=== PATIENT | male | born 1985 | race Caucasian/White ===

== ENCOUNTER 2016-03-20 11:55 | Emergency (ER) | payer MEDICARE, MEDICAID ==
[~2016-03-20 11:55] MED LIST: CIPR500T89 PO; PERC7.5T12 PO; XANA1TAB2 PO
--- NOTE | 2016-03-20 13:14 | EDDOCDS ---
Nurse's Notes [facility] Name: Yoan Briceño Age: 30 yrs Sex: Male : 1985 Arrival Date: 03/20/2016 Time: 11:55 Bed TR8 Private MD: NO PRIMARY PHYSICIAN, . Diagnosis: Acute upper respiratory infection, unspecified Presentation: 03/20 11:58 Presenting complaint: Patient states: woke up today with hoarse voice hurts to take bcj breath - hurts to swallow. coughing up yellow mucus. denies drooling. Adult Sepsis Screening: The patient does not have new or worsening altered mentation. Patient's respiratory rate is less than 22. Systolic blood pressure is greater than 100. Patient has a qSOFA score of 0- Negative Sepsis Screen. Suicide/Homicide risk assessment- the patient denies having any suicidal and/or homicidal ideations and does not present with any other emotional, behavioral or mental health complaints. Status: Transition of care: patient was not received from another setting of care. 11:58 Acuity: HORACIO Level 4 [facility] 11:58 Method Of Arrival: Walkin/Carried/Asstd bcj Triage Assessment: 12:00 General: Appears in no apparent distress, comfortable, Behavior is cooperative. Pain: bcj Location: neck Pain currently is 8 out of 10 on a pain scale. HIV screening NA for this visit Offered previously. Respiratory: Onset: The symptoms/episode began/occurred today. Historical: - Allergies: PENICILLINS; - Home Meds: 1. aspirin 81 mg Oral tab 1 tab once daily patient took 2 at 0800 2. magnesium oxide 500 mg Oral tab daily 3. Xanax 0.5 mg Oral tab 1 tab as needed for Anxiety - PMHx: Anxiety; Atrial Fib; PTSD; - PSHx: none; - Social history: Smoking status: Chewing Tobacco No barriers to communication noted, The patient speaks fluent Kazakh, Speaks appropriately for age. - Family history: Not pertinent. - : The pt / caregiver states he / she is not on anticoagulants. Home medication list is obtained from the patient. - Exposure Risk Screening:: None identified. Screenin:11 Screening information is obtained from the patient. Fall risk: No risks identified. ms18 Assistance ADL's: requires no assistance with activities of daily living. Abuse/DV Screen: The patient / caregiver reports he/she is: not in a situation that causes fear, pain or injury. Nutritional screening: No deficits noted. Advance Directives: There is no living will. home support is adequate. Assessment: 13:11 General: Appears in no apparent distress, comfortable, obese, Behavior is appropriate ms18 for age, cooperative, quiet. Pain: Denies pain. Neurological: Level of Consciousness is awake, alert, obeys commands, Oriented to person, place, time. Cardiovascular: Capillary refill < 3 seconds Chest pain is denied. Respiratory: Airway is patent Respiratory effort is even, unlabored, Breath sounds are clear bilaterally. Derm: Skin is pink, warm & dry. Vital Signs: 11:56 BP 134 / 87; Pulse 98; Resp 18 S; Temp 97.8(O); Pulse Ox 98% on R/A; Weight 125.19 kg dd6 (R); Height 6 ft. 0 in. (182.88 cm) (R); 11:56 Body Mass Index 37.43 (125.19 kg, 182.88 cm) dd6 Vitals: 11:56 Log In Time: March 20, 2016 at 11:54. dd6 ED Course: 11:56 Patient visited by Elias Sampson PCA. dd6 11:56 NO PRIMARY PHYSICIAN, . is Private Physician. dd6 11:56 Patient moved to Waiting dd6 11:57 Patient moved to Pre RCE dd6 11:59 Triage Initiated bc 12:01 Patient visited by Vish Sprague RN. [facility] 12:18 Patient moved to Triage 3 rs6 12:40 [facility] jo4 12:40 Mindy Barrera MD is Attending Physician. jo4 13:10 Patient moved to TR8 md18 13:11 The patient / caregiver is instructed regarding the plan of care and ED course. Patient ms18 has correct armband on for positive identification. Property sent home with patient. :Personal belongings accompany Pt. 13:11 No IV's were initiated during this patient's visit. No procedures done that require ms18 assistance. 13:12 [facility] [place] Agreement was scanned into [employer] and attached to record. jp5 13:13 Patient visited by Krystal Murdock RN. ms18 Order Results: There are currently no results for this order. Outcome: 13:03 Discharge ordered by Provider. jo4 13:11 Discharge Assessment: Patient awake, alert and oriented x 3. No cognitive and/or ms18 functional deficits noted. Patient verbalized understanding of disposition instructions. patient administered narcotics - no. The following High Risk Discharge criteria are identified: None. Discharged to home ambulatory. Condition: good Condition: stable. Discharge instructions given to patient, Instructed on discharge instructions, follow up and referral plans. Demonstrated understanding of instructions, Pt was receptive of discharge instructions/ teaching. No special radiology studies were completed. 13:13 Patient left the ED. ms18 Signatures: Vish Sprague, RN RN Elias Ma, PROPOSAL SPECIALIST PROPOSAL SPECIALIST dd6 Krystal Murdock RN RN ms18 Gia Berrios, PROPOSAL SPECIALIST PROPOSAL SPECIALIST rs6 Lana Galvan Jane, DO DO jo4 DAVID
--- NOTE | 2016-03-20 13:14 | EDDOCDS ---
Physician Documentation [facility] Name: Yoan Briceño Age: 30 yrs Sex: Male : 1985 Arrival Date: 03/20/2016 Time: 11:55 Bed TR8 Private MD: NO PRIMARY PHYSICIAN, . Disposition: 03/20/16 13:03 Discharged to Home/Self Care. Impression: Acute upper respiratory infection, unspecified. - Condition is Stable. - Discharge Instructions: Upper Respiratory Infection, Adult. - Medication Reconciliation, Local Pharmacy Hours form. - Follow up: Private Physician; When: Call to arrange an appointment; Reason: Recheck today's complaints. - Problem is new. - Symptoms have improved. - Notes: You were evaluated in the emergency department for symptoms of a viral upper respiratory infection. Continue with symptomatic relief, including, but not limited to, cough drops, saline nasal spray, fluid hydration with water, and mucinex. Continue with Tylenol or Ibuprofen for symptomatic pain relief. Follow the recommended dosage guidelines on the packaging. Please follow-up with your primary care provider in 1 week. Historical: - Allergies: PENICILLINS; - Home Meds: 1. aspirin 81 mg Oral tab 1 tab once daily patient took 2 at 0800 2. magnesium oxide 500 mg Oral tab daily 3. Xanax 0.5 mg Oral tab 1 tab as needed for Anxiety - PMHx: Anxiety; Atrial Fib; PTSD; - PSHx: none; - Social history: Smoking status: Chewing Tobacco No barriers to communication noted, The patient speaks fluent Malawian, Speaks appropriately for age. - Family history: Not pertinent. - : The pt / caregiver states he / she is not on anticoagulants. Home medication list is obtained from the patient. - Exposure Risk Screening:: None identified. Vital Signs: 03/20 11:56 BP 134 / 87; Pulse 98; Resp 18 S; Temp 97.8(O); Pulse Ox 98% on R/A; Weight 125.19 kg / dd6 276 lbs (R); Height 6 ft. 0 in. (182.88 cm) (R); 11:56 Body Mass Index 37.43 (125.19 kg, 182.88 cm) dd6 MDM: 13:12 [facility] Payment Agreement was scanned into [employer] and attached to record. jp5 Signatures: Vish Sprague RN RN Krystal Espino RN RN ms18 Lana Galvan jp5 Zehra Isaac DO DO jo4 The chart was reviewed and I authenticate all verbal orders and agree with the evaluation and treatment provided.Attachments: 13:12 [facility] Payment Agreement jp5 MTDD
--- NOTE | 2016-03-22 14:14 | EDDOCDS ---
Physician Documentation [facility] Name: Yoan Briceño Age: 30 yrs Sex: Male : 1985 Arrival Date: 03/20/2016 Time: 11:55 Bed TR8 Private MD: NO PRIMARY PHYSICIAN, . Disposition: 03/20/16 13:03 Discharged to Home/Self Care. Impression: Acute upper respiratory infection, unspecified. - Condition is Stable. - Discharge Instructions: Upper Respiratory Infection, Adult. - Medication Reconciliation, Local Pharmacy Hours form. - Follow up: Private Physician; When: Call to arrange an appointment; Reason: Recheck today's complaints. - Problem is new. - Symptoms have improved. - Notes: You were evaluated in the emergency department for symptoms of a viral upper respiratory infection. Continue with symptomatic relief, including, but not limited to, cough drops, saline nasal spray, fluid hydration with water, and mucinex. Continue with Tylenol or Ibuprofen for symptomatic pain relief. Follow the recommended dosage guidelines on the packaging. Please follow-up with your primary care provider in 1 week. Historical: - Allergies: PENICILLINS; - Home Meds: 1. aspirin 81 mg Oral tab 1 tab once daily patient took 2 at 0800 2. magnesium oxide 500 mg Oral tab daily 3. Xanax 0.5 mg Oral tab 1 tab as needed for Anxiety - PMHx: Anxiety; Atrial Fib; PTSD; - PSHx: none; - Social history: Smoking status: Chewing Tobacco No barriers to communication noted, The patient speaks fluent South African, Speaks appropriately for age. - Family history: Not pertinent. - : The pt / caregiver states he / she is not on anticoagulants. Home medication list is obtained from the patient. - Exposure Risk Screening:: None identified. Vital Signs: 03/20 11:56 BP 134 / 87; Pulse 98; Resp 18 S; Temp 97.8(O); Pulse Ox 98% on R/A; Weight 125.19 kg / dd6 276 lbs (R); Height 6 ft. 0 in. (182.88 cm) (R); 11:56 Body Mass Index 37.43 (125.19 kg, 182.88 cm) dd6 MDM: 13:12 [facility] [place] Payment Agreement was scanned into [employer] and attached to record. jp5 15:10 T-Sheet-- Draft Copy was scanned into [employer] and attached to record. klr Signatures: Vish Sprague RN RN Krystal Espino RN RN ms18 Lana Galvan jp5 Zehra Isaac DO DO jo4 Redder, Kathie klr The chart was reviewed and I authenticate all verbal orders and agree with the evaluation and treatment provided.Attachments: 13:12 [facility] Payment Agreement jp5 15:10 T-Sheet-- Draft Copy klr Chart Complete MTDD
--- NOTE | 2016-03-22 14:14 | EDDOCDS ---
Nurse's Notes [facility] Name: Yoan Briceño Age: 30 yrs Sex: Male : 1985 Arrival Date: 03/20/2016 Time: 11:55 Bed TR8 Private MD: NO PRIMARY PHYSICIAN, . Diagnosis: Acute upper respiratory infection, unspecified Presentation: 03/20 11:58 Presenting complaint: Patient states: woke up today with hoarse voice hurts to take bcj breath - hurts to swallow. coughing up yellow mucus. denies drooling. Adult Sepsis Screening: The patient does not have new or worsening altered mentation. Patient's respiratory rate is less than 22. Systolic blood pressure is greater than 100. Patient has a qSOFA score of 0- Negative Sepsis Screen. Suicide/Homicide risk assessment- the patient denies having any suicidal and/or homicidal ideations and does not present with any other emotional, behavioral or mental health complaints. Status: Transition of care: patient was not received from another setting of care. 11:58 Acuity: HORACIO Level 4 [facility] 11:58 Method Of Arrival: Walkin/Carried/Asstd bcj Triage Assessment: 12:00 General: Appears in no apparent distress, comfortable, Behavior is cooperative. Pain: bcj Location: neck Pain currently is 8 out of 10 on a pain scale. HIV screening NA for this visit Offered previously. Respiratory: Onset: The symptoms/episode began/occurred today. Historical: - Allergies: PENICILLINS; - Home Meds: 1. aspirin 81 mg Oral tab 1 tab once daily patient took 2 at 0800 2. magnesium oxide 500 mg Oral tab daily 3. Xanax 0.5 mg Oral tab 1 tab as needed for Anxiety - PMHx: Anxiety; Atrial Fib; PTSD; - PSHx: none; - Social history: Smoking status: Chewing Tobacco No barriers to communication noted, The patient speaks fluent Upper Sorbian, Speaks appropriately for age. - Family history: Not pertinent. - : The pt / caregiver states he / she is not on anticoagulants. Home medication list is obtained from the patient. - Exposure Risk Screening:: None identified. Screenin:11 Screening information is obtained from the patient. Fall risk: No risks identified. ms18 Assistance ADL's: requires no assistance with activities of daily living. Abuse/DV Screen: The patient / caregiver reports he/she is: not in a situation that causes fear, pain or injury. Nutritional screening: No deficits noted. Advance Directives: There is no living will. home support is adequate. Assessment: 13:11 General: Appears in no apparent distress, comfortable, obese, Behavior is appropriate ms18 for age, cooperative, quiet. Pain: Denies pain. Neurological: Level of Consciousness is awake, alert, obeys commands, Oriented to person, place, time. Cardiovascular: Capillary refill < 3 seconds Chest pain is denied. Respiratory: Airway is patent Respiratory effort is even, unlabored, Breath sounds are clear bilaterally. Derm: Skin is pink, warm & dry. Vital Signs: 11:56 BP 134 / 87; Pulse 98; Resp 18 S; Temp 97.8(O); Pulse Ox 98% on R/A; Weight 125.19 kg dd6 (R); Height 6 ft. 0 in. (182.88 cm) (R); 11:56 Body Mass Index 37.43 (125.19 kg, 182.88 cm) dd6 Vitals: 11:56 Log In Time: March 20, 2016 at 11:54. dd6 ED Course: 11:56 Patient visited by Elias Sampson PCA. dd6 11:56 NO PRIMARY PHYSICIAN, . is Private Physician. dd6 11:56 Patient moved to Waiting dd6 11:57 Patient moved to Pre RCE dd6 11:59 Triage Initiated bc 12:01 Patient visited by Vish Sprague RN. [facility] 12:18 Patient moved to Triage 3 rs6 12:40 Zehra Isaac [facility]. jo4 12:40 Mindy Barrera MD is Attending Physician. jo4 13:10 Patient moved to TR8 md18 13:11 The patient / caregiver is instructed regarding the plan of care and ED course. Patient ms18 has correct armband on for positive identification. Property sent home with patient. :Personal belongings accompany Pt. 13:11 No IV's were initiated during this patient's visit. No procedures done that require ms18 assistance. 13:12 [facility] Payment Agreement was scanned into [employer] and attached to record. jp5 13:13 Patient visited by Krystal Murdock RN. ms18 15:10 T-Sheet-- Draft Copy was scanned into [employer] and attached to record. klr Order Results: There are currently no results for this order. Outcome: 13:03 Discharge ordered by Provider. davonte 13:11 Discharge Assessment: Patient awake, alert and oriented x 3. No cognitive and/or ms18 functional deficits noted. Patient verbalized understanding of disposition instructions. patient administered narcotics - no. The following High Risk Discharge criteria are identified: None. Discharged to home ambulatory. Condition: good Condition: stable. Discharge instructions given to patient, Instructed on discharge instructions, follow up and referral plans. Demonstrated understanding of instructions, Pt was receptive of discharge instructions/ teaching. No special radiology studies were completed. 13:13 Patient left the ED. ms18 Signatures: Vish Sprague, RN RN Elias Ma, CONCRETE MIXING PLANT LABORER CONCRETE MIXING PLANT LABORER dd6 Krystal Murdock RN RN ms18 Gia Berrios, CONCRETE MIXING PLANT LABORER CONCRETE MIXING PLANT LABORER rs6 Lana Galvan jp5 Zehra Isaac DO DO joShelby Alvarenga Chart Complete MTDDominik
--- NOTE | 2016-03-22 14:14 | EDDOCDS ---
Physician Documentation [facility] Name: Yoan Briceño Age: 30 yrs Sex: Male : 1985 Arrival Date: 03/20/2016 Time: 11:55 Bed TR8 Private MD: NO PRIMARY PHYSICIAN, . Disposition: 03/20/16 13:03 Discharged to Home/Self Care. Impression: Acute upper respiratory infection, unspecified. - Condition is Stable. - Discharge Instructions: Upper Respiratory Infection, Adult. - Medication Reconciliation, Local Pharmacy Hours form. - Follow up: Private Physician; When: Call to arrange an appointment; Reason: Recheck today's complaints. - Problem is new. - Symptoms have improved. - Notes: You were evaluated in the emergency department for symptoms of a viral upper respiratory infection. Continue with symptomatic relief, including, but not limited to, cough drops, saline nasal spray, fluid hydration with water, and mucinex. Continue with Tylenol or Ibuprofen for symptomatic pain relief. Follow the recommended dosage guidelines on the packaging. Please follow-up with your primary care provider in 1 week. Historical: - Allergies: PENICILLINS; - Home Meds: 1. aspirin 81 mg Oral tab 1 tab once daily patient took 2 at 0800 2. magnesium oxide 500 mg Oral tab daily 3. Xanax 0.5 mg Oral tab 1 tab as needed for Anxiety - PMHx: Anxiety; Atrial Fib; PTSD; - PSHx: none; - Social history: Smoking status: Chewing Tobacco No barriers to communication noted, The patient speaks fluent Ecuadorean, Speaks appropriately for age. - Family history: Not pertinent. - : The pt / caregiver states he / she is not on anticoagulants. Home medication list is obtained from the patient. - Exposure Risk Screening:: None identified. Vital Signs: 03/20 11:56 BP 134 / 87; Pulse 98; Resp 18 S; Temp 97.8(O); Pulse Ox 98% on R/A; Weight 125.19 kg / dd6 276 lbs (R); Height 6 ft. 0 in. (182.88 cm) (R); 11:56 Body Mass Index 37.43 (125.19 kg, 182.88 cm) dd6 MDM: 13:12 [facility] [place] Agreement was scanned into [employer] and attached to record. jp5 15:10 T-Sheet-- Draft Copy was scanned into [employer] and attached to record. klr Signatures: Vish Sprague RN RN Krystal Espino RN RN ms18 Lana Galvan jp5 Zehra Isaac DO DO jo4 Redder, Kathie klr The chart was reviewed and I authenticate all verbal orders and agree with the evaluation and treatment provided.Attachments: 13:12 [facility] Payment Agreement jp5 15:10 T-Sheet-- Draft Copy klr Chart Complete MTDD
== END 2016-03-20 13:13 | disposition home or self-care (01) ==
LOC: M ED 11:55
DX: J06.9 Acute upper respiratory infection, unspecified (principal); I48.91 Unspecified atrial fibrillation; F41.9 Anxiety disorder, unspecified; F43.10 Post-traumatic stress disorder, unspecified; F17.228 Nicotine dependence, chewing tobacco, with other nicotine-induced disorders; Z79.82 Long term (current) use of aspirin; Z79.899 Other long term (current) drug therapy; Z88.0 Allergy status to penicillin

== ENCOUNTER 2016-03-27 00:06 | Emergency (ER) | payer MEDICARE, MEDICAID ==
[2016-03-27 00:59] LABS: BASO % 0.2 % (0.0-1.0); EOS # 0.4 K/mm3 (0.0-0.50); EOS % 3.8 % (0.0-3.0); LARGE UNSTAINED CELL # 0.2 K/mm3 (0.0-0.4); LARGE UNSTAINED CELL % 1.4 % (0.0-4.0); LYMPH # 3.3 K/mm3 (1.5-4.5); LYMPH % 30.6 % (24.0-44.0); MEAN CORPUSCULAR HEMOGLOBIN 29.4 pg (27.0-33.0); MEAN CORPUSCULAR HGB CONC 33.9 g/dl (32.0-36.5); MEAN CORPUSCULAR VOLUME 86.6 fl (80.0-96.0); MONO # 0.6 K/mm3 (0.0-0.8); MONO % 5.2 % (0.0-5.0); NEUTROPHILS # 6.3 K/mm3 (1.8-7.7); NEUTROPHILS % 58.7 % (36.0-66.0); PLATELET COUNT, AUTOMATED 296 k/mm3 (150-450); RED CELL DISTRIBUTION WIDTH 12.4 % (11.5-14.5); WHITE BLOOD COUNT 10.8 K/mm3 (4.0-10.0)
[2016-03-27 01:11] LABS: ANION GAP 8 MEQ/L (8-16); BLOOD UREA NITROGEN 18 MG/DL (7-18); CALCIUM LEVEL 8.8 MG/DL (8.5-10.1); CARBON DIOXIDE LEVEL 27 MEQ/L (21-32); CHLORIDE LEVEL 104 MEQ/L (98-107); CREATININE FOR GFR 1.14 MG/DL (0.70-1.30); GLOMERULAR FILTRATION RATE > 60.0 (>60); GLUCOSE, FASTING 106 MG/DL (70-105); SODIUM LEVEL 139 MEQ/L (136-145)
[2016-03-27] MEDS ORDERED: GI COCKTAIL 50ML BTL(HYOSCYAMINE/MAALOX/LIDOCAINE VISCOUS)(1:3:1) As Ordered ONE (03:08)
--- NOTE | 2016-03-27 03:21 | EDDOCDS ---
Nurse's Notes [facility] Name: Yoan Briceño Age: 30 yrs Sex: Male : 1985 Arrival Date: 03/27/2016 Time: 00:06 Bed 11 Private MD: Diagnosis: Gastritis, unspecified Presentation: 03/27 00:16 Presenting complaint: Patient states: he has had chest discomfort and palpit.ations for cz 4 days.pt seen for anxiety pt states was having issues at that time but did not divulge at that time pt relates family history and self treating at home. pt describes a heaviness/pinching on left side of his body. Aspirin was not taken prior to arrival. Adult Sepsis Screening: The patient does not have new or worsening altered mentation. Patient's respiratory rate is less than 22. Systolic blood pressure is greater than 100. Patient has a qSOFA score of 0- Negative Sepsis Screen. Suicide/Homicide risk assessment- the patient denies having any suicidal and/or homicidal ideations and does not present with any other emotional, behavioral or mental health complaints. Status: Patient is not a manager managed backup services or dependent. Transition of care: patient was not received from another setting of care. 00:16 Acuity: HORACIO Level 2 cz 00:16 Method Of Arrival: Wheelchair cz Triage Assessment: 00:21 General: Appears in no apparent distress, Behavior is anxious, cooperative. Pain: cz Location: chest Pain currently is 0 out of 10 on a pain scale. HIV screening NA for this visit Offered previously. Cardiovascular: No deficits noted. 01:18 Cardiovascular: Chest pain is described as vague, radiates Does not radiate. episodes ko2 are intermittent began. Historical: - Allergies: PENICILLINS; - Home Meds: 1. aspirin 81 mg Oral tab 1 tab once daily patient took 2 at 0800 (Last dose: 03/26/2016 16:30) 2. magnesium oxide 500 mg Oral tab daily (Last dose: 03/26/2016 16:30) 3. Xanax 1 mg oral tab (Last dose: 03/26/2016 21:00) - PMHx: Anxiety; Atrial Fib; PTSD; - PSHx: Appendectomy; - Social history: Smoking status: Chewing Tobacco No barriers to communication noted, The patient speaks fluent French, Speaks appropriately for age. - Family history: Not pertinent. - : The pt / caregiver states he / she is not on anticoagulants. Home medication list is obtained from the patient. - Exposure Risk Screening:: None identified. Screenin:09 Screening information is obtained from the patient. Fall risk: No risks identified. ko2 Fall risk: No risks identified. Assistance ADL's: requires no assistance with activities of daily living. Abuse/DV Screen: The patient / caregiver reports he/she is: not in a situation that causes fear, pain or injury. Nutritional screening: No deficits noted. Advance Directives: Currently, there is no health care proxy. There is no active DNR order. There is no living will. There is no Power of Automotive Refinish Technician. home support is adequate. Assessment: 00:30 General: Appears in no apparent distress, comfortable, Behavior is pt currently ko2 listening to head phones and playing on cell phone. Neurological: Level of Consciousness is awake, alert, Cardiovascular: Rhythm is regular. Respiratory: Airway is patent Respiratory effort is even, unlabored. Derm: Skin is normal. 01:49 General: Appears in no apparent distress, comfortable, Behavior is cooperative. ko2 General: pt currently playing on cell phone and watching tv. Neurological: Level of Consciousness is awake, alert. Cardiovascular: Rhythm is regular. Respiratory: Airway is patent Respiratory effort is even, unlabored. Derm: Skin is normal. Vital Signs: 00:21 BP 131 / 84; Pulse 94; Resp 16; Weight 125.19 kg; Height 5 ft. 11 in. (180.34 cm); cz 00:27 Temp 97.5(O); cln 01:40 BP 140 / 72 (auto/); ko2 01:41 Pulse 100 MON; Pulse Ox 95% ; ko2 01:47 Pulse 100 MON; Pulse Ox 96% ; ko2 01:48 BP 134 / 74 (auto/); ko2 02:09 BP 145 / 78 (auto/); ko2 02:10 Pulse 96 MON; Pulse Ox 95% ; ko2 03:19 BP 129 / 74; Pulse 89; Resp 18; Temp 97.2; Pulse Ox 97% ; Pain 0/10; ko2 00:21 Body Mass Index 38.49 (125.19 kg, 180.34 cm) cz Vitals: 00:21 Log In Time: March 27, 2016 at 00:20. cz ED Course: 00:09 Patient visited by Bell Montgomery Reg. hs2 00:09 Patient moved to Waiting hs2 00:12 Petra Srivastava,NATASHA is Primary Nurse. mar 00:12 Patient moved to Mar 00:19 Triage Initiated cz 00:23 Patient visited by Aleksandar Viramontes PCA. kb5 00:23 EKG done. (by ED staff). Reviewed by Andrae Gonzalez DO. kb5 00:57 Andrae Gonzalez DO is Attending Physician. cs11 00:57 Patient visited by Andrae Gonzalez DO. cs11 01:17 The patient / caregiver is instructed regarding the plan of care and ED course. Cardiac ko2 monitor on. Pulse ox on. NIBP on. 01:49 Patient visited by Petra Srivastava RN. ko2 02:50 Patient visited by Araceli Andrade RN. mar 03:19 Discontinued lock intact, bleeding controlled, pressure dressing applied, No ko2 redness/swelling at site. IV started in left AC by Ruslan Gao RN. No procedures done that require assistance. Administered Medications: 03:05 Drug: GI Cocktail - (Alum-Mag Hydroxide-Simeth Suspension 225 mg-200 mg-25 mg/5 mL 30 ko2 ml, Lidocaine Liquid 2 % 10 ml, Hyoscyamine Liquid 10 ml) Route: PO; Order Results: Lab Order: Basic Metabolic Profile; SPEC'M 03/27/16 00:37 Test: GLUCOSE, FASTING; Value: 106; Range: 70-105; Abnormal: Above high normal; Units: MG/DL; Status: F Test: BLOOD UREA NITROGEN; Value: 18; Range: 7-18; Units: MG/DL; Status: F Test: CREATININE FOR GFR; Value: 1.14; Range: 0.70-1.30; Units: MG/DL; Status: F Test: GLOMERULAR FILTRATION RATE; Value: > 60.0; Range: >60; Status: F Test: SODIUM LEVEL; Value: 139; Range: 136-145; Units: MEQ/L; Status: F Test: POTASSIUM SERUM; Value: 4.0; Range: 3.5-5.1; Units: MEQ/L; Status: F Test: CHLORIDE LEVEL; Value: 104; Range: 98-107; Units: MEQ/L; Status: F Test: CARBON DIOXIDE LEVEL; Value: 27; Range: 21-32; Units: MEQ/L; Status: F Test: ANION GAP; Value: 8; Range: 8-16; Units: MEQ/L; Status: F Test: CALCIUM LEVEL; Value: 8.8; Range: 8.5-10.1; Units: MG/DL; Status: F Test Note: ; Units are mL/min/1.73 m2 Chronic Kidney Disease Staging per NKF: Stage I & II GFR >=60 Normal to Mildly Decreased Stage III GFR 30-59 Moderately Decreased Stage IV GFR 15-29 Severely Decreased Stage V GFR <15 Very Little GFR Left ESRD GFR <15 on ASSISTED LIVING HOME DIRECTOR Lab Order: CBC with Diff; SPEC'M 03/27/16 00:37 Test: WHITE BLOOD COUNT; Value: 10.8; Range: 4.0-10.0; Abnormal: Above high normal; Units: K/mm3; Status: F Test: RED BLOOD COUNT; Value: 5.06; Range: 4.30-6.10; Units: M/mm3; Status: F Test: HEMOGLOBIN; Value: 14.9; Range: 14.0-18.0; Units: g/dl; Status: F Test: HEMATOCRIT; Value: 43.8; Range: 42.0-52.0; Units: %; Status: F Test: MEAN CORPUSCULAR VOLUME; Value: 86.6; Range: 80.0-96.0; Units: fl; Status: F Test: MEAN CORPUSCULAR HEMOGLOBIN; Value: 29.4; Range: 27.0-33.0; Units: pg; Status: F Test: MEAN CORPUSCULAR HGB CONC; Value: 33.9; Range: 32.0-36.5; Units: g/dl; Status: F Test: RED CELL DISTRIBUTION WIDTH; Value: 12.4; Range: 11.5-14.5; Units: %; Status: F Test: PLATELET COUNT, AUTOMATED; Value: 296; Range: 150-450; Units: k/mm3; Status: F Test: NEUTROPHILS %; Value: 58.7; Range: 36.0-66.0; Units: %; Status: F Test: LYMPH %; Value: 30.6; Range: 24.0-44.0; Units: %; Status: F Test: MONO %; Value: 5.2; Range: 0.0-5.0; Abnormal: Above high normal; Units: %; Status: F Test: EOS %; Value: 3.8; Range: 0.0-3.0; Abnormal: Above high normal; Units: %; Status: F Test: BASO %; Value: 0.2; Range: 0.0-1.0; Units: %; Status: F Test: LARGE UNSTAINED CELL %; Value: 1.4; Range: 0.0-4.0; Units: %; Status: F Test: NEUTROPHILS #; Value: 6.3; Range: 1.8-7.7; Units: K/mm3; Status: F Test: LYMPH #; Value: 3.3; Range: 1.5-4.5; Units: K/mm3; Status: F Test: MONO #; Value: 0.6; Range: 0.0-0.8; Units: K/mm3; Status: F Test: EOS #; Value: 0.4; Range: 0.0-0.50; Units: K/mm3; Status: F Test: BASO #; Value: 0.0; Range: 0.0-0.2; Units: K/mm3; Status: F Test: LARGE UNSTAINED CELL #; Value: 0.2; Range: 0.0-0.4; Units: K/mm3; Status: F Lab Order: Cardiac Injury Profile; SPEC'M 03/27/16 00:37 Test: CPK CREATINE PHOSPHOKINASE; Value: 134; Range: 39-308; Units: U/L; Status: F Test: CK-MB VALUE MASS; Value: 1.0; Range: 0.0-3.6; Units: NG/ML; Status: F Test: MB/CK RELATIVE INDEX; Value: 0.74; Range: < OR =4; Status: F Test Note: ; DIAGNOSIS CRITERIA MMB ng/ml Relative Index (RI) NON-AMI < or = 5 N/A CUMMINS ZONE > 5 < or = 4 AMI > 5 > 4 Lab Order: Troponin; SPEC'M 03/27/16 00:37 Test: TROPONIN I; Value: < 0.02; Range: < 0.10; Units: NG/ML; Status: F Test Note: ; Troponin I Reference Interval for Siemens Luxtera LOCI: 99th Percentile= 0.00-0.045 ng/ml Risk Stratification: <= 0.10 ng/ml Decreased Risk for Adverse Clinical Events. 0.10-1.50 ng/ml Increased Risk for Adverse Clinical Events. Evaluation of additional criterion and/or repeat testing in 2-6 hours is suggested to rule out myocardial damage. >= 1.50 ng/ml Indicative of Myocardial Injury. Outcome: 03:00 Discharge ordered by Provider. cs11 03:20 Discharge Assessment: Patient awake, alert and oriented x 3. No cognitive and/or ko2 functional deficits noted. Patient verbalized understanding of disposition instructions. patient administered narcotics - no. The following High Risk Discharge criteria are identified: None. Discharged to home ambulatory. Condition: stable. Discharge instructions given to patient, Instructed on discharge instructions, follow up and referral plans. medication usage, Demonstrated understanding of instructions, medications, Prescriptions given X 1. No special radiology studies were completed. Property sent home with patient. 03:21 Patient left the ED. ko2 Signatures: Araceli Andrade RN RN jan Zecher, Calvin, RN RN Aleksandar Wylie, BOX CLOSING MACHINE OPERATOR BOX CLOSING MACHINE OPERATOR kb5 Andrae Gonzalez, DO DO cs11 Petra Srivastava RN RN ko2 Bell Montgomery, Reg Reg hs2 Blanca Ortiz, BOX CLOSING MACHINE OPERATOR BOX CLOSING MACHINE OPERATOR cln Corrections: (The following items were deleted from the chart) 00:23 00:16 Presenting complaint: Patient states: he has had chest discomfort and cz palpit.ations for 4 days.pt seen for anxiety pt states was having issues at that time but did not divulge at that time pt relates family history and self treating at home cz MTDD
--- NOTE | 2016-03-27 03:21 | EDDOCDS ---
Physician Documentation [facility] Name: Yoan Briceño Age: 30 yrs Sex: Male : 1985 Arrival Date: 03/27/2016 Time: 00:06 Bed 11 Private MD: Disposition: 03/27/16 03:00 Discharged to Home/Self Care. Impression: Gastritis, unspecified. - Condition is Stable. - Prescriptions for Prilosec 20 mg Oral Capsule - take 1 capsule by ORAL route once daily; 10 capsule. - Medication Reconciliation, Local Pharmacy Hours form. - Follow up: Private Physician; When: Call to arrange an appointment; Reason: Recheck today's complaints. - Problem is an ongoing problem. - Symptoms have improved. Historical: - Allergies: PENICILLINS; - Home Meds: 1. aspirin 81 mg Oral tab 1 tab once daily patient took 2 at 0800 (Last dose: 03/26/2016 16:30) 2. magnesium oxide 500 mg Oral tab daily (Last dose: 03/26/2016 16:30) 3. Xanax 1 mg oral tab (Last dose: 03/26/2016 21:00) - PMHx: Anxiety; Atrial Fib; PTSD; - PSHx: Appendectomy; - Social history: Smoking status: Chewing Tobacco No barriers to communication noted, The patient speaks fluent Indian, Speaks appropriately for age. - Family history: Not pertinent. - : The pt / caregiver states he / she is not on anticoagulants. Home medication list is obtained from the patient. - Exposure Risk Screening:: None identified. Vital Signs: 03/27 00:21 BP 131 / 84; Pulse 94; Resp 16; Weight 125.19 kg / 276 lbs; Height 5 ft. 11 in. (180.34 cz cm); 00:27 Temp 97.5(O); cln 01:40 BP 140 / 72 (auto/); ko2 01:41 Pulse 100 MON; Pulse Ox 95% ; ko2 01:47 Pulse 100 MON; Pulse Ox 96% ; ko2 01:48 BP 134 / 74 (auto/); ko2 02:09 BP 145 / 78 (auto/); ko2 02:10 Pulse 96 MON; Pulse Ox 95% ; ko2 03:19 BP 129 / 74; Pulse 89; Resp 18; Temp 97.2; Pulse Ox 97% ; Pain 0/10; ko2 00:21 Body Mass Index 38.49 (125.19 kg, 180.34 cm) cz MDM: 00:20 ECG WITH READING ER PHYS+CARDIAG ordered. EDMS 00:34 Astronautical Engineer/Pulse Ox/q 30 min VS ordered. cz 00:34 IV Saline Lock ordered. cz 00:34 Rhythm Strip to chart ordered. cz 00:34 Undress patient appropriately for examination ordered. cz 00:35 Basic Metabolic Profile Ordered. EDMS 00:35 CBC with Diff Ordered. EDMS 00:35 Cardiac Injury Profile Ordered. EDMS 00:35 Troponin Ordered. EDMS 01:57 Financial registration complete. [facility] 02:32 Basic Metabolic Profile Reviewed. cs11 02:32 CBC with Diff Reviewed. cs11 02:32 Cardiac Injury Profile Reviewed. cs11 02:32 Troponin Reviewed. cs11 02:33 Chest, 2 View (pa\E\lat) Ordered. EDMS 02:59 GI Cocktail - (Alum-Mag Hydroxide-Simeth 30 ml, Lidocaine 10 ml, Hyoscyamine 10 ml) PO cs11 once; Pre-mixed 50mL unit dose ordered. Administered Medications: 03:05 Drug: GI Cocktail - (Alum-Mag Hydroxide-Simeth Suspension 225 mg-200 mg-25 mg/5 mL 30 ko2 ml, Lidocaine Liquid 2 % 10 ml, Hyoscyamine Liquid 10 ml) Route: PO; Signatures: Dispatcher [employer] Fredo Flores, RN Andrae Gilbert DO DO cs11 Petra Srivastava RN RN ko2 [place], Sandra [facility] MTDD
--- NOTE | 2016-03-27 08:17 | ECGEPIP ---
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
--- NOTE | 2016-03-27 11:19 | REP ---
Chest x-ray: Two views. History: Abdominal pain. Comparison study February 10, 2015. Findings: EKG monitoring electrodes overlie the chest. Lungs are well inflated and clear. Heart is not enlarged. Pulmonary vasculature is not increased. No significant bony abnormality is seen. No free subdiaphragmatic air noted. Impression: Negative chest x-ray. Signed by Sergio Ray MD 03/27/2016 01:13 P
--- NOTE | 2016-03-29 04:21 | EDDOCDS ---
Physician Documentation [facility] Name: Yoan Briceño Age: 30 yrs Sex: Male : 1985 Arrival Date: 03/27/2016 Time: 00:06 Bed 11 Private MD: Disposition: 03/27/16 03:00 Discharged to Home/Self Care. Impression: Gastritis, unspecified. - Condition is Stable. - Prescriptions for Prilosec 20 mg Oral Capsule - take 1 capsule by ORAL route once daily; 10 capsule. - Medication Reconciliation, Local Pharmacy Hours form. - Follow up: Private Physician; When: Call to arrange an appointment; Reason: Recheck today's complaints. - Problem is an ongoing problem. - Symptoms have improved. Historical: - Allergies: PENICILLINS; - Home Meds: 1. aspirin 81 mg Oral tab 1 tab once daily patient took 2 at 0800 (Last dose: 03/26/2016 16:30) 2. magnesium oxide 500 mg Oral tab daily (Last dose: 03/26/2016 16:30) 3. Xanax 1 mg oral tab (Last dose: 03/26/2016 21:00) - PMHx: Anxiety; Atrial Fib; PTSD; - PSHx: Appendectomy; - Social history: Smoking status: Chewing Tobacco No barriers to communication noted, The patient speaks fluent Italian, Speaks appropriately for age. - Family history: Not pertinent. - : The pt / caregiver states he / she is not on anticoagulants. Home medication list is obtained from the patient. - Exposure Risk Screening:: None identified. Vital Signs: 03/27 00:21 BP 131 / 84; Pulse 94; Resp 16; Weight 125.19 kg / 276 lbs; Height 5 ft. 11 in. (180.34 cz cm); 00:27 Temp 97.5(O); cln 01:40 BP 140 / 72 (auto/); ko2 01:41 Pulse 100 MON; Pulse Ox 95% ; ko2 01:47 Pulse 100 MON; Pulse Ox 96% ; ko2 01:48 BP 134 / 74 (auto/); ko2 02:09 BP 145 / 78 (auto/); ko2 02:10 Pulse 96 MON; Pulse Ox 95% ; ko2 03:19 BP 129 / 74; Pulse 89; Resp 18; Temp 97.2; Pulse Ox 97% ; Pain 0/10; ko2 00:21 Body Mass Index 38.49 (125.19 kg, 180.34 cm) cz MDM: 00:20 ECG WITH READING ER PHYS+CARDIAG ordered. EDMS 00:34 Eyelet Punch Operator/Pulse Ox/q 30 min VS ordered. cz 00:34 IV Saline Lock ordered. cz 00:34 Rhythm Strip to chart ordered. cz 00:34 Undress patient appropriately for examination ordered. cz 00:35 Basic Metabolic Profile Ordered. EDMS 00:35 CBC with Diff Ordered. EDMS 00:35 Cardiac Injury Profile Ordered. EDMS 00:35 Troponin Ordered. EDMS 01:57 Financial registration complete. [facility] 02:32 Basic Metabolic Profile Reviewed. cs11 02:32 CBC with Diff Reviewed. cs11 02:32 Cardiac Injury Profile Reviewed. cs11 02:32 Troponin Reviewed. cs11 02:33 Chest, 2 View (pa\E\lat) Ordered. EDMS 02:59 GI Cocktail - (Alum-Mag Hydroxide-Simeth 30 ml, Lidocaine 10 ml, Hyoscyamine 10 ml) PO cs11 once; Pre-mixed 50mL unit dose ordered. 03:34 [facility] Payment Agreement was scanned into [employer] and attached to record. [facility] 14:32 T-Sheet-- Draft Copy was scanned into [employer] and attached to record. 14:33 ECG/EKG was scanned into [employer] and attached to record. gb Administered Medications: 03:05 Drug: GI Cocktail - (Alum-Mag Hydroxide-Simeth Suspension 225 mg-200 mg-25 mg/5 mL 30 ko2 ml, Lidocaine Liquid 2 % 10 ml, Hyoscyamine Liquid 10 ml) Route: PO; Signatures: Dispatcher [employer] EDMS Fredo Gao, RN RN cz Codi Case, Reg Reg gb Andrae Gonzalez, DO DO cs11 Petra Srivastava RN RN Monique Solomon [facility] The chart was reviewed and I authenticate all verbal orders and agree with the evaluation and treatment provided.Attachments: 03:34 [facility] Payment Agreement [facility] 14:32 T-Sheet-- Draft Copy 14:33 ECG/EKG gb Chart Complete MTDD
--- NOTE | 2016-03-29 04:21 | EDDOCDS ---
Nurse's Notes [facility] Name: Tejas Briceño Age: 30 yrs Sex: Male : 1985 Arrival Date: 03/27/2016 Time: 00:06 Bed 11 Private MD: Diagnosis: Gastritis, unspecified Presentation: 03/27 00:16 Presenting complaint: Patient states: he has had chest discomfort and palpit.ations for cz 4 days.pt seen for anxiety pt states was having issues at that time but did not divulge at that time pt relates family history and self treating at home. pt describes a heaviness/pinching on left side of his body. Aspirin was not taken prior to arrival. Adult Sepsis Screening: The patient does not have new or worsening altered mentation. Patient's respiratory rate is less than 22. Systolic blood pressure is greater than 100. Patient has a qSOFA score of 0- Negative Sepsis Screen. Suicide/Homicide risk assessment- the patient denies having any suicidal and/or homicidal ideations and does not present with any other emotional, behavioral or mental health complaints. Status: Patient is not a food service clerk or dependent. Transition of care: patient was not received from another setting of care. 00:16 Acuity: HORACIO Level 2 cz 00:16 Method Of Arrival: Wheelchair cz Triage Assessment: 00:21 General: Appears in no apparent distress, Behavior is anxious, cooperative. Pain: cz Location: chest Pain currently is 0 out of 10 on a pain scale. HIV screening NA for this visit Offered previously. Cardiovascular: No deficits noted. 01:18 Cardiovascular: Chest pain is described as vague, radiates Does not radiate. episodes ko2 are intermittent began. Historical: - Allergies: PENICILLINS; - Home Meds: 1. aspirin 81 mg Oral tab 1 tab once daily patient took 2 at 0800 (Last dose: 03/26/2016 16:30) 2. magnesium oxide 500 mg Oral tab daily (Last dose: 03/26/2016 16:30) 3. Xanax 1 mg oral tab (Last dose: 03/26/2016 21:00) - PMHx: Anxiety; Atrial Fib; PTSD; - PSHx: Appendectomy; - Social history: Smoking status: Chewing Tobacco No barriers to communication noted, The patient speaks fluent Polish, Speaks appropriately for age. - Family history: Not pertinent. - : The pt / caregiver states he / she is not on anticoagulants. Home medication list is obtained from the patient. - Exposure Risk Screening:: None identified. Screenin:09 Screening information is obtained from the patient. Fall risk: No risks identified. ko2 Fall risk: No risks identified. Assistance ADL's: requires no assistance with activities of daily living. Abuse/DV Screen: The patient / caregiver reports he/she is: not in a situation that causes fear, pain or injury. Nutritional screening: No deficits noted. Advance Directives: Currently, there is no health care proxy. There is no active DNR order. There is no living will. There is no Power of Electrolysis Engineer. home support is adequate. Assessment: 00:30 General: Appears in no apparent distress, comfortable, Behavior is pt currently ko2 listening to head phones and playing on cell phone. Neurological: Level of Consciousness is awake, alert, Cardiovascular: Rhythm is regular. Respiratory: Airway is patent Respiratory effort is even, unlabored. Derm: Skin is normal. 01:49 General: Appears in no apparent distress, comfortable, Behavior is cooperative. ko2 General: pt currently playing on cell phone and watching tv. Neurological: Level of Consciousness is awake, alert. Cardiovascular: Rhythm is regular. Respiratory: Airway is patent Respiratory effort is even, unlabored. Derm: Skin is normal. Vital Signs: 00:21 BP 131 / 84; Pulse 94; Resp 16; Weight 125.19 kg; Height 5 ft. 11 in. (180.34 cm); cz 00:27 Temp 97.5(O); cln 01:40 BP 140 / 72 (auto/); ko2 01:41 Pulse 100 MON; Pulse Ox 95% ; ko2 01:47 Pulse 100 MON; Pulse Ox 96% ; ko2 01:48 BP 134 / 74 (auto/); ko2 02:09 BP 145 / 78 (auto/); ko2 02:10 Pulse 96 MON; Pulse Ox 95% ; ko2 03:19 BP 129 / 74; Pulse 89; Resp 18; Temp 97.2; Pulse Ox 97% ; Pain 0/10; ko2 00:21 Body Mass Index 38.49 (125.19 kg, 180.34 cm) cz Vitals: 00:21 Log In Time: March 27, 2016 at 00:20. cz ED Course: 00:09 Patient visited by Bell Montgomery, Reg. hs2 00:09 Patient moved to Waiting hs2 00:12 Petra Srivastava,NATASHA is Primary Nurse. mar 00:12 Patient moved to Mar 00:19 Triage Initiated cz 00:23 Patient visited by Aleksandar Viramontes PCA. kb5 00:23 EKG done. (by ED staff). Reviewed by Andrae Haider DO. kb5 00:57 Andrae Haider DO is Attending Physician. cs11 00:57 Patient visited by Andrae Haider DO. cs11 01:17 The patient / caregiver is instructed regarding the plan of care and ED course. Cardiac ko2 monitor on. Pulse ox on. NIBP on. 01:49 Patient visited by Petra Srivastava RN. ko2 02:50 Patient visited by Araceli Andrade RN. mar 03:19 Discontinued lock intact, bleeding controlled, pressure dressing applied, No ko2 redness/swelling at site. IV started in left AC by Ruslan Gao RN. No procedures done that require assistance. 03:34 Patient name changed from Tejas\S\Edward\S\Briceño\S\ to Tejas\S\E\S\Briceño. EDMS 03:34 [facility] [place] Payment Agreement was scanned into [employer] and attached to record. [facility] 08:42 EKG-ADULT Returned. EDMS 11:34 Chest, 2 View (pa\E\lat) Returned. EDMS 14:32 T-Sheet-- Draft Copy was scanned into [employer] and attached to record. gb 14:33 ECG/EKG was scanned into [employer] and attached to record. gb Administered Medications: 03:05 Drug: GI Cocktail - (Alum-Mag Hydroxide-Simeth Suspension 225 mg-200 mg-25 mg/5 mL 30 ko2 ml, Lidocaine Liquid 2 % 10 ml, Hyoscyamine Liquid 10 ml) Route: PO; Order Results: Lab Order: Basic Metabolic Profile; SPEC'M 03/27/16 00:37 Test: GLUCOSE, FASTING; Value: 106; Range: 70-105; Abnormal: Above high normal; Units: MG/DL; Status: F Test: BLOOD UREA NITROGEN; Value: 18; Range: 7-18; Units: MG/DL; Status: F Test: CREATININE FOR GFR; Value: 1.14; Range: 0.70-1.30; Units: MG/DL; Status: F Test: GLOMERULAR FILTRATION RATE; Value: > 60.0; Range: >60; Status: F Test: SODIUM LEVEL; Value: 139; Range: 136-145; Units: MEQ/L; Status: F Test: POTASSIUM SERUM; Value: 4.0; Range: 3.5-5.1; Units: MEQ/L; Status: F Test: CHLORIDE LEVEL; Value: 104; Range: 98-107; Units: MEQ/L; Status: F Test: CARBON DIOXIDE LEVEL; Value: 27; Range: 21-32; Units: MEQ/L; Status: F Test: ANION GAP; Value: 8; Range: 8-16; Units: MEQ/L; Status: F Test: CALCIUM LEVEL; Value: 8.8; Range: 8.5-10.1; Units: MG/DL; Status: F Test Note: ; Units are mL/min/1.73 m2 Chronic Kidney Disease Staging per NKF: Stage I & II GFR >=60 Normal to Mildly Decreased Stage III GFR 30-59 Moderately Decreased Stage IV GFR 15-29 Severely Decreased Stage V GFR <15 Very Little GFR Left ESRD GFR <15 on TRUST MANAGER Lab Order: CBC with Diff; SPEC'M 03/27/16 00:37 Test: WHITE BLOOD COUNT; Value: 10.8; Range: 4.0-10.0; Abnormal: Above high normal; Units: K/mm3; Status: F Test: RED BLOOD COUNT; Value: 5.06; Range: 4.30-6.10; Units: M/mm3; Status: F Test: HEMOGLOBIN; Value: 14.9; Range: 14.0-18.0; Units: g/dl; Status: F Test: HEMATOCRIT; Value: 43.8; Range: 42.0-52.0; Units: %; Status: F Test: MEAN CORPUSCULAR VOLUME; Value: 86.6; Range: 80.0-96.0; Units: fl; Status: F Test: MEAN CORPUSCULAR HEMOGLOBIN; Value: 29.4; Range: 27.0-33.0; Units: pg; Status: F Test: MEAN CORPUSCULAR HGB CONC; Value: 33.9; Range: 32.0-36.5; Units: g/dl; Status: F Test: RED CELL DISTRIBUTION WIDTH; Value: 12.4; Range: 11.5-14.5; Units: %; Status: F Test: PLATELET COUNT, AUTOMATED; Value: 296; Range: 150-450; Units: k/mm3; Status: F Test: NEUTROPHILS %; Value: 58.7; Range: 36.0-66.0; Units: %; Status: F Test: LYMPH %; Value: 30.6; Range: 24.0-44.0; Units: %; Status: F Test: MONO %; Value: 5.2; Range: 0.0-5.0; Abnormal: Above high normal; Units: %; Status: F Test: EOS %; Value: 3.8; Range: 0.0-3.0; Abnormal: Above high normal; Units: %; Status: F Test: BASO %; Value: 0.2; Range: 0.0-1.0; Units: %; Status: F Test: LARGE UNSTAINED CELL %; Value: 1.4; Range: 0.0-4.0; Units: %; Status: F Test: NEUTROPHILS #; Value: 6.3; Range: 1.8-7.7; Units: K/mm3; Status: F Test: LYMPH #; Value: 3.3; Range: 1.5-4.5; Units: K/mm3; Status: F Test: MONO #; Value: 0.6; Range: 0.0-0.8; Units: K/mm3; Status: F Test: EOS #; Value: 0.4; Range: 0.0-0.50; Units: K/mm3; Status: F Test: BASO #; Value: 0.0; Range: 0.0-0.2; Units: K/mm3; Status: F Test: LARGE UNSTAINED CELL #; Value: 0.2; Range: 0.0-0.4; Units: K/mm3; Status: F Lab Order: Cardiac Injury Profile; SPEC'M 03/27/16 00:37 Test: CPK CREATINE PHOSPHOKINASE; Value: 134; Range: 39-308; Units: U/L; Status: F Test: CK-MB VALUE MASS; Value: 1.0; Range: 0.0-3.6; Units: NG/ML; Status: F Test: MB/CK RELATIVE INDEX; Value: 0.74; Range: < OR =4; Status: F Test Note: ; DIAGNOSIS CRITERIA MMB ng/ml Relative Index (RI) NON-AMI < or = 5 N/A CUMMINS ZONE > 5 < or = 4 AMI > 5 > 4 Lab Order: Troponin; SPEC'M 03/27/16 00:37 Test: TROPONIN I; Value: < 0.02; Range: < 0.10; Units: NG/ML; Status: F Test Note: ; Troponin I Reference Interval for Siemens TM3 Software LOCI: 99th Percentile= 0.00-0.045 ng/ml Risk Stratification: <= 0.10 ng/ml Decreased Risk for Adverse Clinical Events. 0.10-1.50 ng/ml Increased Risk for Adverse Clinical Events. Evaluation of additional criterion and/or repeat testing in 2-6 hours is suggested to rule out myocardial damage. >= 1.50 ng/ml Indicative of Myocardial Injury. 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; : 1985 Requested By: ANDRAE HAIDER; Order Number: [id number] Reading MD: Mindy Barrera; Measurements; Intervals [place]; Rate: 87 P: 3; VT: 145 QRS: -24; QRSD: 85 T: 23; QT: 338; QTc: 409; Interpretive Statements; SINUS RHYTHM; BORDERLINE LEFT AXIS DEVIATION; SIMILAR 10/11/15; Electronically Signed On 03-27-2016 8:17:01 EST by Mindy Barrera; Radiology Order: Chest, 2 View (pa\E\lat) Test: Chest, 2 View (pa\E\lat) REASON FOR EXAMINATION: Abdomen Pain; Chest x-ray: Two views.; ; History: Abdominal pain.; ; Comparison study February 10, 2015.; ; Findings: EKG monitoring electrodes overlie the chest. Lungs are well inflated; and clear. Heart is not enlarged. Pulmonary vasculature is not increased. No; significant bony abnormality is seen. No free subdiaphragmatic air noted.; ; Impression:; ; Negative chest x-ray.; ; ; Signed by; Sergio Ray MD 03/27/2016 01:13 P; Outcome: 03:00 Discharge ordered by Provider. cs11 03:20 Discharge Assessment: Patient awake, alert and oriented x 3. No cognitive and/or ko2 functional deficits noted. Patient verbalized understanding of disposition instructions. patient administered narcotics - no. The following High Risk Discharge criteria are identified: None. Discharged to home ambulatory. Condition: stable. Discharge instructions given to patient, Instructed on discharge instructions, follow up and referral plans. medication usage, Demonstrated understanding of instructions, medications, Prescriptions given X 1. No special radiology studies were completed. Property sent home with patient. 03:21 Patient left the ED. ko2 Signatures: Dispatcher [employer] EDMS Araceli Andrade RN RN jan Zecher, Calvin, RN RN cz Codi Case, Reg Reg gb Aleksandar Viramontes, HOGSHEAD INSPECTOR HOGSHEAD INSPECTOR kb5 Andrae Haider, DO cs11 Petra Srivastava RN RN ko2 Monique Alejo Hillary, Reg Reg hs2 Blanca Ortiz, HOGSHEAD INSPECTOR HOGSHEAD INSPECTOR cln Corrections: (The following items were deleted from the chart) 00:23 00:16 Presenting complaint: Patient states: he has had chest discomfort and cz palpit.ations for 4 days.pt seen for anxiety pt states was having issues at that time but did not divulge at that time pt relates family history and self treating at home cz Chart Complete MTDD
--- NOTE | 2016-03-29 04:21 | EDDOCDS ---
Physician Documentation [facility] Name: Yoan Briceño Age: 30 yrs Sex: Male : 1985 Arrival Date: 03/27/2016 Time: 00:06 Bed 11 Private MD: Disposition: 03/27/16 03:00 Discharged to Home/Self Care. Impression: Gastritis, unspecified. - Condition is Stable. - Prescriptions for Prilosec 20 mg Oral Capsule - take 1 capsule by ORAL route once daily; 10 capsule. - Medication Reconciliation, Local Pharmacy Hours form. - Follow up: Private Physician; When: Call to arrange an appointment; Reason: Recheck today's complaints. - Problem is an ongoing problem. - Symptoms have improved. Historical: - Allergies: PENICILLINS; - Home Meds: 1. aspirin 81 mg Oral tab 1 tab once daily patient took 2 at 0800 (Last dose: 03/26/2016 16:30) 2. magnesium oxide 500 mg Oral tab daily (Last dose: 03/26/2016 16:30) 3. Xanax 1 mg oral tab (Last dose: 03/26/2016 21:00) - PMHx: Anxiety; Atrial Fib; PTSD; - PSHx: Appendectomy; - Social history: Smoking status: Chewing Tobacco No barriers to communication noted, The patient speaks fluent Serbian, Speaks appropriately for age. - Family history: Not pertinent. - : The pt / caregiver states he / she is not on anticoagulants. Home medication list is obtained from the patient. - Exposure Risk Screening:: None identified. Vital Signs: 03/27 00:21 BP 131 / 84; Pulse 94; Resp 16; Weight 125.19 kg / 276 lbs; Height 5 ft. 11 in. (180.34 cz cm); 00:27 Temp 97.5(O); cln 01:40 BP 140 / 72 (auto/); ko2 01:41 Pulse 100 MON; Pulse Ox 95% ; ko2 01:47 Pulse 100 MON; Pulse Ox 96% ; ko2 01:48 BP 134 / 74 (auto/); ko2 02:09 BP 145 / 78 (auto/); ko2 02:10 Pulse 96 MON; Pulse Ox 95% ; ko2 03:19 BP 129 / 74; Pulse 89; Resp 18; Temp 97.2; Pulse Ox 97% ; Pain 0/10; ko2 00:21 Body Mass Index 38.49 (125.19 kg, 180.34 cm) cz MDM: 00:20 ECG WITH READING ER PHYS+CARDIAG ordered. EDMS 00:34 Buhr Mill Operator/Pulse Ox/q 30 min VS ordered. cz 00:34 IV Saline Lock ordered. cz 00:34 Rhythm Strip to chart ordered. cz 00:34 Undress patient appropriately for examination ordered. cz 00:35 Basic Metabolic Profile Ordered. EDMS 00:35 CBC with Diff Ordered. EDMS 00:35 Cardiac Injury Profile Ordered. EDMS 00:35 Troponin Ordered. EDMS 01:57 Financial registration complete. slh 02:32 Basic Metabolic Profile Reviewed. cs11 02:32 CBC with Diff Reviewed. cs11 02:32 Cardiac Injury Profile Reviewed. cs11 02:32 Troponin Reviewed. cs11 02:33 Chest, 2 View (pa\E\lat) Ordered. EDMS 02:59 GI Cocktail - (Alum-Mag Hydroxide-Simeth 30 ml, Lidocaine 10 ml, Hyoscyamine 10 ml) PO cs11 once; Pre-mixed 50mL unit dose ordered. 03:34 [facility] Payment Agreement was scanned into [employer] and attached to record. [facility] 14:32 T-Sheet-- Draft Copy was scanned into [employer] and attached to record. 14:33 ECG/EKG was scanned into [employer] and attached to record. gb Administered Medications: 03:05 Drug: GI Cocktail - (Alum-Mag Hydroxide-Simeth Suspension 225 mg-200 mg-25 mg/5 mL 30 ko2 ml, Lidocaine Liquid 2 % 10 ml, Hyoscyamine Liquid 10 ml) Route: PO; Signatures: Dispatcher [employer] EDMS Fredo Gao, RN RN cz Codi Case, Reg Reg gb Andrae Gonzalez, DO DO cs11 Petra Srivastava RN RN Monique Solomon [facility] The chart was reviewed and I authenticate all verbal orders and agree with the evaluation and treatment provided.Attachments: 03:34 [facility] Payment Agreement [facility] 14:32 T-Sheet-- Draft Copy 14:33 ECG/EKG gb Chart Complete MTDD
== END 2016-03-27 03:21 | disposition home or self-care (01) ==
LOC: M ED 00:06
DX: K29.70 Gastritis, unspecified, without bleeding (principal); F41.9 Anxiety disorder, unspecified; F43.10 Post-traumatic stress disorder, unspecified; I48.91 Unspecified atrial fibrillation; F17.220 Nicotine dependence, chewing tobacco, uncomplicated; Z79.899 Other long term (current) drug therapy; Z79.82 Long term (current) use of aspirin; Z88.0 Allergy status to penicillin

== ENCOUNTER 2017-06-04 19:27 | Emergency (ER) | payer MEDICARE, MEDICAID ==
[2017-06-04 22:43] LABS: INFLUENZA A AMPLIFICATION NEGATIVE (NEGATIVE); INFLUENZA B AMPLIFICATION NEGATIVE (NEGATIVE)
[2017-06-04] MEDS: KETOROLAC TROMETHAMINE 10 MG TAB PO (23:30)
[2017-06-04] MEDS ORDERED: CIPROFLOXACIN 500 MG TAB PO (23:30)
== END 2017-06-04 23:35 | disposition home or self-care (01) ==
LOC: M ED 19:27
DX: J06.9 Acute upper respiratory infection, unspecified (principal); I48.91 Unspecified atrial fibrillation; F41.9 Anxiety disorder, unspecified
CPT/HCPCS: 71046

== ENCOUNTER 2017-07-03 00:37 | Emergency (ER) | payer MEDICARE | END 2017-07-03 02:08 | disposition home or self-care (01) | LOC: M ED 00:37 | DX: R06.02 Shortness of breath (principal); I48.91 Unspecified atrial fibrillation; J45.909 Unspecified asthma, uncomplicated; Z87.891 Personal history of nicotine dependence; Z88.0 Allergy status to penicillin; Z88.5 Allergy status to narcotic agent; Z88.8 Allergy status to other drugs, medicaments and biological substances | CPT/HCPCS: 93005 ==

== ENCOUNTER 2018-04-21 03:43 | Emergency (ER) | payer MEDICARE, OTHER ==
[~2018-04-21] VITALS: Ht 185.4 cm; Wt 133.2 kg
[~2018-04-21 03:43] MED LIST changes: +ASPI1TAB PO
[2018-04-21] MEDS ORDERED: PROT1TAB2 PO (04:46)
[2018-04-21 05:00] VITALS: BP 140/85
--- NOTE | 2018-04-22 19:20 | ECGEPIP ---
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
== END 2018-04-21 05:10 | disposition home or self-care (01) ==
LOC: M ED 03:43
DX: R13.10 Dysphagia, unspecified (principal)

== ENCOUNTER 2019-03-20 16:24 | Emergency (ER) | payer MEDICARE, MEDICAID ==
[~2019-03-20] VITALS: Ht 188 cm; Wt 133.4 kg
[~2019-03-20 16:24] MED LIST changes: -ASPI1TAB PO; +ASPI81TA26 PO; +PROT1TAB2 PO
[2019-03-20 16:25] VITALS: BP 141/84
[2019-03-20] MEDS ORDERED: PROP10TA56 (16:33)
[2019-03-20] MEDS ORDERED: PANT40TA3 (16:33)
[2019-03-20 17:50] LABS: HEMATOCRIT 44.7 % (42.0-52.0); HEMOGLOBIN 14.5 g/dl (13.5-17.5); MEAN CORPUSCULAR HEMOGLOBIN 28.4 pg (27.0-33.0); MEAN CORPUSCULAR HGB CONC 32.4 g/dl (32.0-36.5); MEAN CORPUSCULAR VOLUME 87.6 fl (80.0-96.0); PLATELET COUNT, AUTOMATED 297 10^3/uL (150-450); WHITE BLOOD COUNT 11.5 10^3/uL (4.0-10.0)
[2019-03-20 18:15] LABS: CHLAMYDIA DNA AMPLIFICATION NEGATIVE (NEGATIVE); GC DNA AMPLIFICATION NEGATIVE (NEGATIVE)
--- NOTE | 2019-03-20 18:15 | REPVR ---
PROCEDURE INFORMATION: Exam: US Scrotum Exam date and time: 03/20/2019 6:02 PM Age: 33 years old Clinical indication: Scrotum pain; Additional info: L testicular pain R/O torsion TECHNIQUE: Imaging protocol: Real-time ultrasound of the scrotum and contents with color Doppler and image documentation. COMPARISON: No relevant prior studies available. FINDINGS: Right testicle: The right testis measures 5.4 x 3.6 x 3.8 cm. There is preservation of blood flow within the right testis, without evidence of torsion. Tiny hyperechoic foci are visualized within the right testis, consistent with microlithiasis. No intratesticular mass identified. Left testicle: The left testis measures 5.3 x 3.1 x 3.6 cm. Tiny hyperechoic foci are visualized within the left testis, consistent with microlithiasis. No intratesticular mass identified. There is preservation of blood flow within the left testis, without evidence of torsion. Epididymides: The right epididymal head measures 1.0 cm in diameter. Hypoechoic cystic foci are visualized within the right epididymal head, the largest measuring 0.3 cm. The left epididymal head measures 0.6 cm in diameter. There is a 0.3 cm hypoechoic cyst within the left epididymal head. Scrotum: Small bilateral hydroceles. IMPRESSION: 1. There is preservation of blood flow within the bilateral testes, without evidence of torsion. 2. Small bilateral epididymal cysts. 3. Small bilateral hydroceles. 4. Tiny hyperechoic foci are visualized within the bilateral testes, consistent with microlithiasis. Follow-up ultrasonography is recommended due to the association of microlithiasis with testicular neoplasm. Electronically signed by: Earnest Trejo On 03/20/2019 18:15:07 PM
[2019-03-20 18:18] LABS: ALBUMIN 3.9 GM/DL (3.2-5.2); ALT/SGPT 38 U/L (12-78); BILIRUBIN,DIRECT < 0.1 MG/DL (0.0-0.2); BILIRUBIN,TOTAL 0.4 MG/DL (0.2-1.0); BLOOD UREA NITROGEN 15 MG/DL (7-18); CARBON DIOXIDE LEVEL 25 MEQ/L (21-32); CHLORIDE LEVEL 106 MEQ/L (98-107); GLOMERULAR FILTRATION RATE > 60.0 (>60); GLUCOSE, FASTING 90 MG/DL (70-100); LIPASE 85 U/L (73-393); POTASSIUM SERUM 3.8 MEQ/L (3.5-5.1); SODIUM LEVEL 139 MEQ/L (136-145); TOTAL PROTEIN 8.4 GM/DL (6.4-8.2)
[2019-03-20 18:24] LABS: ANISOCYTOSIS 1+; ATYPICAL LYMPH 9 % (0-5); EOSINOPHILS 1 % (0-3); LYMPHOCYTES 29 % (16-44); MONOCYTES 7 % (0-5); NEUTROPHILS 54 % (28-66)
[2019-03-20 18:25] LABS: HYPOCHROMASIA 1+
[2019-03-20 18:26] LABS: PLATELET ESTIMATE NORMAL (NORMAL)
[2019-03-20] MEDS ORDERED: ISOVUE-370 76% 100ML VIAL (Q9967) As Ordered ONE (18:27)
[2019-03-20] MEDS ORDERED: ALPRAZolam 0.5 MG TAB PO ONE (18:45)
--- NOTE | 2019-03-20 19:13 | REPVR ---
PROCEDURE INFORMATION: Exam: CT Abdomen And Pelvis With Contrast Exam date and time: 03/20/2019 6:36 PM Age: 33 years old Clinical indication: Abdominal pain; Generalized; Additional info: Gen abd pain TECHNIQUE: Imaging protocol: Computed tomography of the abdomen and pelvis with intravenous contrast. Radiation optimization: All CT scans at this facility use at least one of these dose optimization techniques: automated exposure control; mA and/or kV adjustment per patient size (includes targeted exams where dose is matched to clinical indication); or iterative reconstruction. Contrast material: ISOVUE 370; Contrast volume: 100 ml; Contrast route: IV; COMPARISON: CT ABD PELVIS WITH CONTRAST 04/16/2012 3:17 AM FINDINGS: Lungs: Mild atelectasis within the lingula. Liver: There is hypodense fatty infiltration of the liver. Gallbladder and bile ducts: No calcified stones. No ductal dilation. Pancreas: Unremarkable. No ductal dilation. Spleen: A small splenule is identified. No splenomegaly. Adrenals: No mass. Kidneys and ureters: Unremarkable as visualized. No hydronephrosis. Stomach and bowel: Wall thickening of the descending and sigmoid colon, suggestive of incomplete distension or colitis. Colonic diverticula are also visualized. No bowel obstruction. Evaluation of bowel is limited by the absence of oral contrast. Appendix: The appendix is absent. Surgical clips are identified adjacent to the appendix. Intraperitoneal space: No free air. No significant fluid collection. Vasculature: No abdominal aortic aneurysm. Lymph nodes: Nonspecific inguinal lymph nodes bilaterally. Scattered small mesenteric lymph nodes identified, without significant mesenteric lymphadenopathy. Bladder: Unremarkable as visualized. Reproductive: Unremarkable as visualized. Bones/joints: Disc bulging is identified within the lower lumbar spine. Soft tissues: Minimal herniation of fat into the umbilicus. Mild herniation of fat into the inguinal canals, left side greater than right. IMPRESSION: 1. Wall thickening of the descending and sigmoid colon, suggestive of incomplete distension or colitis. Colonic diverticula are also visualized. 2. There is hypodense fatty infiltration of the liver. 3. Additional findings described above. Electronically signed by: Earnest Trejo On 03/20/2019 19:12:57 PM
[2019-03-20] MEDS ORDERED: metroNIDAZOLE (FLAGYL) 500 MG TAB PO ONE (19:45)
[2019-03-20] MEDS ORDERED: GENTAMICIN 240 MG in D5W 50 ML IM ONE (19:45)
[2019-03-20] MEDS ORDERED: CIPROFLOXACIN 500 MG TAB PO ONE (19:45)
[2019-03-20] MEDS ORDERED: AZITHROMYCIN 250 MG TAB PO ONE (19:45)
[2019-03-20] MEDS ORDERED: CIPR-249 PO (19:47)
[2019-03-20] MEDS ORDERED: FLAG500T PO (19:48)
[2019-03-20] MEDS ORDERED: GENTAMICIN SULF INJ 80MG/2ML VIAL (J1580) IM ONE (20:00)
--- NOTE | 2019-03-22 11:58 | ED PDOC ---
Post-Departure Follow-Up dr bradshaw faxed formal report of scrotal us for fu Rebeca Reyna MD Mar 22, 2019 11:58
== END 2019-03-20 20:48 | disposition home or self-care (01) ==
LOC: M ED 16:24
DX: Z20.2 Contact with and (suspected) exposure to infections with a predominantly sexual mode of transmission (principal); K52.9 Noninfective gastroenteritis and colitis, unspecified; N50.89 Other specified disorders of the male genital organs; I48.91 Unspecified atrial fibrillation; F41.9 Anxiety disorder, unspecified; Z79.899 Other long term (current) drug therapy; Z79.82 Long term (current) use of aspirin; Z88.0 Allergy status to penicillin; Z88.5 Allergy status to narcotic agent; Z88.8 Allergy status to other drugs, medicaments and biological substances
CPT/HCPCS: 36415; 74177; 76870; 80048; 80076; 81001; 83690; 85025; 87661; 93041; 93976; 96372; 99284; J1580; Q9967

== ENCOUNTER 2019-07-31 16:06 | Emergency (ER) | payer MEDICARE, MEDICAID ==
[~2019-07-31 16:06] MED LIST changes: +CIPR-249 PO; +FLAG500T PO; +PANT40TA3; +PROP10TA56
[2019-07-31 16:57] LABS: HEMATOCRIT 42.3 % (42.0-52.0); HEMOGLOBIN 13.8 g/dl (13.5-17.5); MEAN CORPUSCULAR HEMOGLOBIN 28.3 pg (27.0-33.0); MEAN CORPUSCULAR HGB CONC 32.6 g/dl (32.0-36.5); MEAN CORPUSCULAR VOLUME 86.9 fl (80.0-96.0); PLATELET COUNT, AUTOMATED 291 10^3/uL (150-450); RED BLOOD COUNT 4.87 10^6/uL (4.30-6.10)
[2019-07-31 16:58] LABS: BASO % 0.3 % (0.0-1.0); EOS # 0.2 10^3/uL (0.0-0.5); EOS % 2.4 % (0.0-3.0); LYMPH # 3.3 10^3/uL (1.5-5.0); LYMPH % 36.3 % (24.0-44.0); MONO # 0.7 10^3/uL (0.0-0.8); MONO % 8.2 % (0.0-5.0); NEUTROPHILS # 4.7 10^3/uL (1.5-8.5); NEUTROPHILS % 52.5 % (36.0-66.0)
--- NOTE | 2019-07-31 17:14 | REPVR ---
PROCEDURE INFORMATION: Exam: US Abdomen Limited, Right Upper Quadrant Exam date and time: 07/31/2019 5:03 PM Age: 34 years old Clinical indication: Abdominal pain; Additional info: Upper abdominal pain TECHNIQUE: Imaging protocol: Real-time ultrasound of the abdomen with image documentation. Examination was focused on the right upper quadrant. COMPARISON: CT ABD/PEL W/IV CONTRAST ONLY 03/20/2019 6:32 PM FINDINGS: Liver: Diffusely echogenic liver, with focal fatty sparing near the gallbladder fossa. Gallbladder: Gallbladder is unremarkable. No gallbladder wall thickening. No sludge or stones. Sonographic Cortez's sign is negative. Common bile duct: The common bile duct measures up to 0.5 cm in diameter. Pancreas: Visualized portions are unremarkable. Right kidney: The right kidney measures 12.7 cm in length. Normal echogenicity. No hydronephrosis or stones. IMPRESSION: 1. No sonographic evidence of cholelithiasis or acute cholecystitis. 2. Diffusely echogenic liver, most likely reflecting hepatic steatosis. Electronically signed by: Roddy Agarwal On 07/31/2019 17:14:04 PM
[2019-07-31 17:30] LABS: ALBUMIN 3.3 GM/DL (3.2-5.2); ALT/SGPT 40 U/L (12-78); BILIRUBIN,DIRECT 0.1 MG/DL (0.0-0.2); BILIRUBIN,TOTAL 0.2 MG/DL (0.2-1.0); BLOOD UREA NITROGEN 9 MG/DL (7-18); CALCIUM LEVEL 8.6 MG/DL (8.5-10.1); CARBON DIOXIDE LEVEL 28 MEQ/L (21-32); CHLORIDE LEVEL 107 MEQ/L (98-107); CK-MB VALUE MASS < 1.0 NG/ML (<3.6); CPK CREATINE PHOSPHOKINASE 70 U/L (39-308); CREATININE FOR GFR 0.99 MG/DL (0.70-1.30); GLOMERULAR FILTRATION RATE > 60.0 (>60); GLUCOSE, FASTING 105 MG/DL (70-100); LIPASE 68 U/L (73-393); MB/CK RELATIVE INDEX 1.43 (< OR =4); POTASSIUM SERUM 3.9 MEQ/L (3.5-5.1); SODIUM LEVEL 140 MEQ/L (136-145); TOTAL PROTEIN 7.2 GM/DL (6.4-8.2); TROPONIN I < 0.02 NG/ML (< 0.10)
--- NOTE | 2019-07-31 19:01 | ECGEPIP ---
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
[2019-07-31 19:07] VITALS: BP 130/82
--- NOTE | 2019-07-31 23:56 | REP ---
REASON: Chest pain. COMPARISON: 06/04/2017 FINDINGS: The technique utilized in obtaining the radiograph has magnified the cardiac silhouette and accentuated the interstitial markings. The superior mediastinal structures are midline. The cardiac silhouette is unremarkable in size, shape, and position. The diaphragmatic surfaces of the lungs are regular, and the costophrenic angles are clear. The pulmonary foreman are clear. The imaged osseous structures are intact. IMPRESSION: There is no acute cardiopulmonary disease. Electronically Signed by Royal Tavera DO 08/01/2019 09:49 A
== END 2019-07-31 19:25 | disposition home or self-care (01) ==
LOC: M ED 16:06 → EDBD 16:06 → M ED 19:25
DX: R07.9 Chest pain, unspecified (principal); I48.91 Unspecified atrial fibrillation; F41.9 Anxiety disorder, unspecified; K21.9 Gastro-esophageal reflux disease without esophagitis; Z79.899 Other long term (current) drug therapy; Z79.82 Long term (current) use of aspirin; Z88.0 Allergy status to penicillin; Z88.5 Allergy status to narcotic agent; Z88.8 Allergy status to other drugs, medicaments and biological substances; Z87.891 Personal history of nicotine dependence

== ENCOUNTER 2020-04-04 12:00 | Emergency (ER) | payer MEDICARE, MEDICAID ==
[~2020-04-04] VITALS: Ht 188 cm; Wt 135.0 kg
[~2020-04-04 12:00] MED LIST changes: +PANT40TA29; -PANT40TA3; -PROP10TA56; +PROP10TA56 PO
[2020-04-04] MEDS ORDERED: PROV108A INH (12:19)
[2020-04-04] MEDS ORDERED: MECLIZINE 25 MG TABLET PO ONE (12:30)
--- OUTSIDE RECORDS SUMMARY | 2020-04-04 12:37 | CCD ---
Author Author [facility] Organization [facility] Address Unknown Phone Unavailable Care Team Providers Care Pastry Artist Name Role Phone MCELHERAN, JOSIAH PA Unavailable Unavailable MCELHERAN, JOSIAH PA Unavailable Unavailable MCELHERAN, JOSIAH PA Unavailable Unavailable MCELHERAN, JOSIAH PA Unavailable Unavailable MCELHERAN, JOSIAH PA Unavailable Unavailable MCELHERAN, JOSIAH PA Unavailable Unavailable MCELHERAN, JOSIAH PA Unavailable Unavailable MCELHERAN, JOSIAH PA Unavailable Unavailable MCELHERAN, JOSIAH PA Unavailable Unavailable MCELHERAN, JOSIAH PA Unavailable Unavailable MCELHERAN, JOSIAH PA Unavailable Unavailable MCELHERAN, JOSIAH PA Unavailable Unavailable MCELHERAN, JOSIAH PA Unavailable Unavailable MCELHERAN, JOSIAH PA Unavailable Unavailable MCELHERAN, JOSIAH PA Unavailable Unavailable MCELHERAN, JOSIAH PA Unavailable Unavailable MCELAN, JOSIAH PA Unavailable Unavailable MCELHERAN, JOSIAH PA Unavailable Unavailable MCELAN, JOSIAH PA Unavailable Unavailable MCELHERAN, JOSIAH PA Unavailable Unavailable MCELHERAN, JOSIAH PA Unavailable Unavailable MCELHERAN, JOSIAH PA Unavailable Unavailable MCELHERAN, JOSIAH PA Unavailable Unavailable MCELHERAN, JOSIAH PA Unavailable Unavailable MCELHERAN, JOSIAH PA Unavailable Unavailable MCELHERAN, JOSIAH PA Unavailable Unavailable MCELHERAN, JOSIAH PA Unavailable Unavailable MCELHERAN, JOSIAH PA Unavailable Unavailable Petrancosta, Augusta Aida PA-C Unavailable Unavailabl e Petrancosta, Augusta Aida PA-C Unavailable Unavailabl e Petrancosta, Augusta Aida PA-C Unavailable Unavailabl e Petrancosta, Augusta Aida PA-C Unavailable Unavailabl e Petrancosta, Augusta Aida PA-C Unavailable Unavailabl e Petrancosta, Augusta Aida PA-C Unavailable Unavailabl e Petrancosta, Augusta Aida PA-C Unavailable Unavailabl e Petrancosta, Augusta Aida PA-C Unavailable Unavailabl e Petrancosta, Augusta Aida PA-C Unavailable Unavailabl e Petrancosta, Augusta Aida PA-C Unavailable Unavailabl e Petrancosta, Augusta Aida PA-C Unavailable Unavailabl e Petrancosta, Augusta Aida PA-C Unavailable Unavailabl e Petrancosta, Augusta Aida PA-C Unavailable Unavailabl e Petrancosta, Augusta Aida PA-C Unavailable Unavailabl e Petrancosta, Augusta Aida PA-C Unavailable Unavailabl e Petrancosta, Augusta Aida PA-C Unavailable Unavailabl e Petrancosta, Augusta Aida PA-C Unavailable Unavailabl e Petrancosta, Augusta Aida PA-C Unavailable Unavailabl e Petrancosta, Augusta Aida PA-C Unavailable Unavailabl e Petrancosta, Augusta Aida PA-C Unavailable Unavailabl e Petrancosta, Augusta Aida PA-C Unavailable Unavailabl e Petrancosta, Augusta Aida PA-C Unavailable Unavailabl e Petrancosta, Augusta Aida PA-C Unavailable Unavailabl e Dille, E Radha DDS Unavailable Unavailable Dille, E Radha DDS Unavailable Unavailable Dille, E Radha DDS Unavailable Unavailable Dille, E Radha DDS Unavailable Unavailable Re-disclosure Warning The records that you are about to access may contain information from federally-assisted alcohol or drug abuse programs. If such information is present, then the following federally mandated warning applies: This information has been disclosed to you from records protected by federal confidentiality rules (42 CFR part 2). The federal rules prohibit you from making any further disclosure of this information unless further disclosure is expressly permitted by the written consent of the person to whom it pertains or as otherwise permitted by 42 CFR part 2. A general authorization for the release of medical or other information is NOT sufficient for this purpose. The Federal rules restrict any use of the information to criminally investigate or prosecute any alcohol or drug abuse patient.The records that you are about to access may contain highly sensitive health information, the redisclosure of which is protected by Article 27-F of the [facility] Public Health law. If you continue you may have access to information: Regarding HIV / AIDS; Provided by facilities licensed or operated by the [facility] Office of Mental Health; or Provided by the [facility] Office for People With Developmental Disabilities. If such information is present, then the following [facility] mandated warning applies: This information has been disclosed to you from confidential records which are protected by state law. State law prohibits you from making any further disclosure of this information without the specific written consent of the person to whom it pertains, or as otherwise permitted by law. Any unauthorized further disclosure in violation of state law may result in a fine or correction sentence or both. A general authorization for the release of medical or other information is NOT sufficient authorization for further disc losure. Family History Family Member Name Family Member Gender Family Member Status Date o f Status Description Data Source(s) Unknown Unknown Problem [facility] ([facility]) Unknown Unknown Problem [facility] ([facility] Unknown Female Problem [facility] ([facility]) Unknown Unknown Problem [facility] ([facility] Encounters Encounter Providers Location Date Indications Data Source(s ) Outpatient Attender: Aida Cade PA-C Main Office 11/22/2019 10:00:00 AM EDT [facility] ([facility] Outpatient Attender: Radha Morejon [facility] 08/14/2019 07:57:53 P M EDT [facility] Outpatient Attender: Aiad Cade PA-C Main Office 08/02/2019 09:00:00 AM EDT [facility] ([facility] Outpatient Attender: Aida Cade PA-C Main Office 07/12/2019 10:30:00 AM EDT [facility] ([facility] Outpatient Referrer: JOSIAH CARRILLO 04/03/2019 06:37 :00 AM EST [facility] Immunizations Vaccine Date Status Description Data Source(s) New in 2012. IIV4 11/22/2019 10:16:00 AM EDT completed [facility] ([facility] Medications Medication Brand Name Start Date Product Form Dose Route Admi nistrative Instructions Pharmacy Instructions Status Indications Reaction Description Data Source(s) 60 ACTUAT Albuterol 0.09 MG/ACTUAT Metered Dose Inhaler Albu terol Sulfate HFA 11/22/2019 12:00:00 AM EDT active [facility] ([facility] Albuterol Mdi 11/22/2019 12:00:00 AM EDT comp leted [facility] ([facility] Insurance Providers Payer name Policy type / Coverage type Policy ID Covered libertarian ID Covered libertarian's relationship to salas Policy Salas Plan Information [id number] SP [id number] MEDICARE [id number] SP [id number] Medicare S [id number] S [id number] Medicaid P UNAVAILABLE S UNA[place]ILA BLE MEDICAID [id number] SP [id number] MEDICARE C [id number] S [id number] [id number] MEDICAID M [id number] S [id number] MEDICAID [id number] SP [id number] UNITED HEALTHCARE MEDICARE [id number] SP [id number] MEDICARE PART A [facility] [id number] 18 [id number] MEDICAID - O/P EMERGENCY ROOM [id number] 18 [id number] MEDICARE PART A-O/P [id number] 18 [id number] MEDICARE DME NORIDIAN JA [id number] 18 [id number] Medicare Part A [place] Primary [id number] Self [id number] Medicare S UNAVAILABLE S UNAVAILA BLE MEDICAID -RECURRING [id number] MEDICARE -RECURRING [id number] 18 [id number] Medicaid Dental O [id number] S [id number] MEDICAID [id number] S [id number] [facility] MEDICARE DIVISION [id number] S [id number] MEDICARE - [place] [id number] S [id number] Medicare Part A [place] Primary [id number] Self [id number] MEDICAID 123 S 123 [facility] MEDICARE DIVISION 123 S 123 MEDICARE - [place] 321 S 321 MEDICARE C [id number] S [id number] A MEDICAID [id number] SP [id number] MEDICARE [id number] SP [id number] A MEDICAID [id number] SP [id number] [place] Medig[place] Part [place] Self Medicare [place] [employer] Medicare Primary Self MEDICARE [id number] SP [id number] A [place] Self MEDICA[place] -O/P [id number] Medicaid Medigap Part B Self Medicare (Part B) Medicare Primary Self MEDICARE -O/P [id number] 18 [id number] Medicare [facility] Medicare Primary Self MEDICAID [id number] SP [id number] MEDICARE C [id number] S [id number] [place] Medig[place] Primary Self MEDICARE A [id number] Self [id number] A Medicare Medicare Primary Self Medicare P [id number] S [id number] A Medicaid S [id number] S [id number] Medicare P [id number] S [id number] Medicaid S [id number] S [id number] MEDICAID - CLINIC [id number] MEDICARE PART A-CLINIC [id number] 18 [id number] MEDICAID - CLINIC [id number] MEDICARE PART A-CLINIC [id number] 18 [id number] Problems, Conditions, and Diagnoses Code Display Name Description Problem Type Effective Dates Data Source(s) 460531211 Tobacco user Tobacco user Problem 07/12/2019 12:00:00 A [place] EDT [facility] ([facility] [id number] Allergic rhinitis Allergic rhinitis Problem 07/12/2019 12:00:00 AM EDT [facility] ([facility] [id number] Obsessive-compulsive disorder Obsessive-compulsive dis order Problem 07/12/2019 12:00:00 AM EDT [facility] ([facility] [id number] Generalized anxiety disorder Generalized anxiety disor fady Problem 07/12/2019 12:00:00 AM EDT [facility] ([facility] [id number] Gastroesophageal reflux disease Gastroesophageal reflux disease Problem 07/12/2019 12:00:00 AM EDT [facility] ([facility] [id number] Paroxysmal atrial fibrillation Paroxysmal atrial fibri llation Problem 07/12/2019 12:00:00 AM EDT [facility] ([facility] Vital Signs ID Date Data Source UNK Name Value Range Interpretation Code Description Data Source(s) Body mass index (BMI) [Ratio] 36.9 kg/m2 36.9 k g/m2 [facility] ([facility] Oxygen saturation in Arterial blood by Pulse oximetry 97 % 97 % [facility] ([facility] Body weight 287.38 [lb_av] 287.38 [lb_av] [facility] T ([facility] Body height 74.0 [in_i] 74.0 [in_i] [facility] ([facility] 6'2" Respiratory rate 17 /min 17 /min [facility] ( [facility] Body temperature 97.9 [degF] 97.9 [degF] [facility] ([facility] Heart rate 75 /min 75 /min [facility] ([facility] Diastolic blood pressure 74 mm[Hg] 74 mm[Hg] [facility] Systolic blood pressure 112 mm[Hg] 112 mm[Hg] [facility]
--- NOTE | 2020-04-04 12:45 | REP ---
INDICATION: Syncope. COMPARISON: Comparison CT study July 06, 2014.. TECHNIQUE: Helical scanning is acquired. 5 mm axial images were reformatted. Coronal MPR images were generated. FINDINGS: Bone window settings demonstrate an intact bony calvarium. There is no evidence of skull fracture or incidental bony calvarial lesion. The visualized paranasal sinuses appear clear. No intraorbital abnormality is seen. On soft tissue window setting images; the lateral, third, and fourth ventricles are normal in size and position. Garcia-white differentiation pattern is normal above and below the tentorium. There are is no evidence of intracranial hemorrhage. No mass, edema, infarction, or midline shift is seen. No extra-axial fluid collection is appreciated. IMPRESSION: Negative noncontrast head CT. <Electronically signed by Cole Ray > 04/04/20 [id number]
[2020-04-04 12:57] LABS: BASO % 0.3 % (0.0-1.0); EOS # 0.2 10^3/uL (0.0-0.5); EOS % 1.9 % (0.0-3.0); HEMATOCRIT 44.4 % (42.0-52.0); HEMOGLOBIN 14.7 g/dl (13.5-17.5); LYMPH # 3.5 10^3/uL (1.5-5.0); LYMPH % 34.1 % (24.0-44.0); MEAN CORPUSCULAR HEMOGLOBIN 29.3 pg (27.0-33.0); MEAN CORPUSCULAR HGB CONC 33.1 g/dl (32.0-36.5); MEAN CORPUSCULAR VOLUME 88.6 fl (80.0-96.0); MONO # 0.8 10^3/uL (0.0-0.8); MONO % 7.6 % (0.0-5.0); NEUTROPHILS # 5.8 10^3/uL (1.5-8.5); NEUTROPHILS % 55.8 % (36.0-66.0); PLATELET COUNT, AUTOMATED 286 10^3/uL (150-450); RED BLOOD COUNT 5.01 10^6/uL (4.30-6.10); WHITE BLOOD COUNT 10.3 10^3/uL (4.0-10.0)
[2020-04-04 13:27] LABS: BLOOD UREA NITROGEN 16 MG/DL (7-18); CALCIUM LEVEL 9.1 MG/DL (8.5-10.1); CARBON DIOXIDE LEVEL 31 MEQ/L (21-32); CHLORIDE LEVEL 106 MEQ/L (98-107); CK-MB VALUE MASS < 1.0 NG/ML (<3.6); CPK CREATINE PHOSPHOKINASE 83 U/L (39-308); CREATININE FOR GFR 1.21 MG/DL (0.70-1.30); FREE T4 0.92 NG/DL (0.76-1.46); GLOMERULAR FILTRATION RATE > 60.0 (>60); GLUCOSE, FASTING 107 MG/DL (70-100); MAGNESIUM LEVEL 2.1 MG/DL (1.8-2.4); POTASSIUM SERUM 3.9 MEQ/L (3.5-5.1); SODIUM LEVEL 142 MEQ/L (136-145); TROPONIN I < 0.02 NG/ML (< 0.10)
[2020-04-04] MEDS ORDERED: MECL1TAB31 PO (13:57)
[2020-04-04 14:24] VITALS: BP 131/72
--- NOTE | 2020-04-05 09:27 | ECGEPIP ---
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
== END 2020-04-04 14:27 | disposition home or self-care (01) ==
LOC: EDBD 12:00 → M ED 12:00
DX: R42 Dizziness and giddiness (principal); R06.02 Shortness of breath; I10 Essential (primary) hypertension; J45.909 Unspecified asthma, uncomplicated; I48.91 Unspecified atrial fibrillation; E78.5 Hyperlipidemia, unspecified; F41.9 Anxiety disorder, unspecified; K21.9 Gastro-esophageal reflux disease without esophagitis; G47.33 Obstructive sleep apnea (adult) (pediatric); Z79.82 Long term (current) use of aspirin; Z88.0 Allergy status to penicillin; Z88.5 Allergy status to narcotic agent; Z88.8 Allergy status to other drugs, medicaments and biological substances

== ENCOUNTER → 2020-06-12 | Outpatient (CLI) | payer MEDICARE, MEDICAID ==
[~2020-06-12] MED LIST changes: +MECL1TAB31 PO; +PROV108A INH
[2020-06-12 15:37] LABS: CHOLESTEROL RISK RATIO 5.484 (<5); FREE T4 0.99 NG/DL (0.76-1.46); THYROID STIMULATING HORMONE 1.83 uIU/ML (0.358-3.740)
[2020-06-12 15:40] LABS: FOLATE 8.7 NG/ML
== END ==
LOC: M LAB 14:13
PROVIDERS: ATTEND Physician Assistant Medical
DX: R20.8 Other disturbances of skin sensation (principal); E78.2 Mixed hyperlipidemia; K21.9 Gastro-esophageal reflux disease without esophagitis

== ENCOUNTER 2020-08-12 22:45 | Emergency (ER) | payer MEDICARE, MEDICAID ==
[~2020-08-12] VITALS: Ht 188 cm; Wt 133.5 kg
[2020-08-12 23:16] LABS: HEMATOCRIT 41.5 % (42.0-52.0); HEMOGLOBIN 13.8 g/dl (13.5-17.5); MEAN CORPUSCULAR HEMOGLOBIN 29.4 pg (27.0-33.0); MEAN CORPUSCULAR HGB CONC 33.3 g/dl (32.0-36.5); MEAN CORPUSCULAR VOLUME 88.5 fl (80.0-96.0); PLATELET COUNT, AUTOMATED 281 10^3/uL (150-450); RED BLOOD COUNT 4.69 10^6/uL (4.30-6.10); WHITE BLOOD COUNT 11.5 10^3/uL (4.0-10.0)
[2020-08-12 23:38] LABS: ATYPICAL LYMPH 8 % (0-5); EOSINOPHILS 1 % (0-3); LYMPHOCYTES 35 % (16-44); MONOCYTES 8 % (0-5); NEUTROPHILS 48 % (28-66); PLATELET ESTIMATE NORMAL (NORMAL)
--- NOTE | 2020-08-13 00:01 | REPVR ---
PROCEDURE INFORMATION: Exam: XR Chest Exam date and time: 08/12/20 (11:22pm) Age: 35 years old Clinical indication: Chest wall pain TECHNIQUE: Imaging protocol: Portable CXR Views: 1 view COMPARISON: Portable CXR of 07/31/19 FINDINGS: Comparison is made with a portable CXR done on 07/31/19. Stable heart size. No vascular congestion. No focal infiltrates. No pleural effusions. Left nipple piercing (presumably) again seen IMPRESSION: No acute pathology. In general, a similar appearance was noted 1 year ago. Electronically signed by: Sydney Boothe On 08/13/2020 00:01:01 AM
[2020-08-13 00:02] LABS: ALBUMIN 3.4 GM/DL (3.2-5.2); ALT/SGPT 56 U/L (12-78); BILIRUBIN,DIRECT 0.1 MG/DL (0.0-0.2); BILIRUBIN,TOTAL 0.4 MG/DL (0.2-1.0); BLOOD UREA NITROGEN 15 MG/DL (7-18); CALCIUM LEVEL 9.1 MG/DL (8.5-10.1); CARBON DIOXIDE LEVEL 29 MEQ/L (21-32); CHLORIDE LEVEL 105 MEQ/L (98-107); CK-MB VALUE MASS < 1.0 NG/ML (<3.6); CPK CREATINE PHOSPHOKINASE 89 U/L (39-308); CREATININE FOR GFR 1.04 MG/DL (0.70-1.30); GLOMERULAR FILTRATION RATE > 60.0 (>60); GLUCOSE, FASTING 118 MG/DL (70-100); LIPASE 109 U/L (73-393); MB/CK RELATIVE INDEX 1.12 (< OR =4); POTASSIUM SERUM 3.9 MEQ/L (3.5-5.1); SODIUM LEVEL 141 MEQ/L (136-145); TOTAL PROTEIN 7.5 GM/DL (6.4-8.2); TROPONIN I < 0.02 NG/ML (< 0.10)
[2020-08-13] MEDS ORDERED: ISOVUE-370 76% 100ML VIAL As Ordered ONE (00:23)
[2020-08-13 00:25] LABS: MONO REFLEX EBV COMP NEGATIVE (NEGATIVE)
[2020-08-13 01:07] LABS: RSV AMPLIFICATION NEGATIVE (NEGATIVE)
--- NOTE | 2020-08-13 01:23 | REPVR ---
PROCEDURE INFORMATION: Exam: CTA Chest With Contrast Exam date and time: 08/13/2020 12:10 AM Age: 35 years old Clinical indication: Chest wall pain; Additional info: Chest pain TECHNIQUE: Imaging protocol: Computed tomographic angiography of the chest with contrast. 3D rendering (Not supervised by radiologist): MIP and/or 3D reconstructed images were created by the technologist. Radiation optimization: All CT scans at this facility use at least one of these dose optimization techniques: automated exposure control; mA and/or kV adjustment per patient size (includes targeted exams where dose is matched to clinical indication); or iterative reconstruction. Contrast material: ISO; Contrast volume: 75 ml; Contrast route: INTRAVENOUS (IV); COMPARISON: CT ANGIO CHEST 11/12/2014 6:43 AM FINDINGS: Pulmonary arteries: The main pulmonary artery measures 25 mm. No gross central pulmonary embolism is identified. Aorta: The ascending thoracic aorta measures 28 mm. Lungs: There is some motion artifact in the lungs with image degradation. Pleural spaces: Unremarkable. No pneumothorax. No pleural effusion. Heart: Unremarkable. No cardiomegaly. No pericardial effusion. Lymph nodes: Unremarkable. No enlarged lymph nodes. Liver: The liver attenuation is 20 Hounsfield units and the spleen is 77 Hounsfield units. Bones/joints: Unremarkable. No acute fracture. Soft tissues: Unremarkable. IMPRESSION: 1. Fatty infiltration of the liver. 2. Otherwise grossly negative CTA chest. There is motion artifact with image degradation. No gross central pulmonary embolism is identified. Electronically signed by: Rajendra Mathis On 08/13/2020 01:22:37 AM
[2020-08-13] MEDS ORDERED: COMBIVENT RESPIMAT 100-20MCG INHALER 4GM INH ONE (01:25)
[2020-08-13] MEDS ORDERED: dexameTHASONE 20MG/5ML VIAL (J1100 PER 1MG) IV ONE (01:25)
[2020-08-13] MEDS ORDERED: KETOROLAC 30 MG/ML 1ML VIAL IV ONE (03:00)
[2020-08-13] MEDS ORDERED: CYCLOBENZAPRINE 10MG TABLET PO ONE (05:00)
[2020-08-13] MEDS ORDERED: PRED20TA PO (05:06)
[2020-08-13 05:36] VITALS: BP 128/78
[2020-08-13] MEDS ORDERED: KETO10TAB PO (05:52)
--- NOTE | 2020-08-13 19:43 | ECGEPIP ---
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
[2020-08-14 17:07] LABS: EBV VIRAL CAPSID AG IgM <36.0 U/mL (0.0-35.9)
== END 2020-08-13 05:47 | disposition home or self-care (01) ==
LOC: M ED 22:45
DX: R07.89 Other chest pain (principal); I10 Essential (primary) hypertension; J45.909 Unspecified asthma, uncomplicated; I48.91 Unspecified atrial fibrillation; E78.5 Hyperlipidemia, unspecified; K21.9 Gastro-esophageal reflux disease without esophagitis; Z79.899 Other long term (current) drug therapy; Z79.82 Long term (current) use of aspirin; Z88.0 Allergy status to penicillin; Z88.5 Allergy status to narcotic agent; Z88.8 Allergy status to other drugs, medicaments and biological substances
CPT/HCPCS: 71045; 71275; 80048; 80076; 82550; 82553; 83690; 84443; 84484; 85025; 85379; 86308; 86664; 86665; 87631; 93005; 93041; 94640; 94760; 96374; 96375; 99285; J1100; J1885; Q9967

== ENCOUNTER 2020-12-09 10:06 | Emergency (ER) | payer MEDICARE, MEDICAID ==
[~2020-12-09 10:06] MED LIST changes: +KETO10TAB PO; +PRED20TA PO
[2020-12-09 10:46] LABS: HEMATOCRIT 43.3 % (42.0-52.0); HEMOGLOBIN 14.6 g/dl (13.5-17.5); MEAN CORPUSCULAR HEMOGLOBIN 29.4 pg (27.0-33.0); MEAN CORPUSCULAR HGB CONC 33.7 g/dl (32.0-36.5); MEAN CORPUSCULAR VOLUME 87.1 fl (80.0-96.0); PLATELET COUNT, AUTOMATED 301 10^3/uL (150-450); RED BLOOD COUNT 4.97 10^6/uL (4.30-6.10)
[2020-12-09 11:26] LABS: ACETAMINOPHEN LEVEL < 2.0 UG/ML (10.0-30.0); ALBUMIN 3.5 GM/DL (3.2-5.2); ALT/SGPT 42 U/L (12-78); BILIRUBIN,DIRECT 0.1 MG/DL (0.0-0.2); BILIRUBIN,TOTAL 0.3 MG/DL (0.2-1.0); BLOOD UREA NITROGEN 13 MG/DL (7-18); CALCIUM LEVEL 9.4 MG/DL (8.5-10.1); CARBON DIOXIDE LEVEL 24 MEQ/L (21-32); CHLORIDE LEVEL 109 MEQ/L (98-107); CREATININE FOR GFR 1.05 MG/DL (0.70-1.30); ETHYL ALCOHOL (ETHANOL) < 0.003 % (0.000-0.010); GLOMERULAR FILTRATION RATE > 60.0 (>60); GLUCOSE, FASTING 114 MG/DL (70-100); POTASSIUM SERUM 4.4 MEQ/L (3.5-5.1); SALICYLATE LEVEL < 1.7 MG/DL (5.0-30.0); SODIUM LEVEL 138 MEQ/L (136-145); TOTAL PROTEIN 7.7 GM/DL (6.4-8.2)
[2020-12-09 11:28] LABS: AMPHETAMINES LEVEL URINE NEGATIVE (NEGATIVE); BARBITURATES URINE NEGATIVE (NEGATIVE); BENZODIAZEPINES URINE POSITIVE (NEGATIVE); CANNABINOIDS URINE NEGATIVE (NEGATIVE); COCAINE METABOLITE URINE NEGATIVE (NEGATIVE); METHADONE URINE NEGATIVE (NEGATIVE); OPIATES URINE NEGATIVE (NEGATIVE); PHENCYCLIDINE URINE NEGATIVE (NEGATIVE)
[2020-12-09 14:30] VITALS: BP 129/75
--- NOTE | 2020-12-09 14:31 | MHIPNPDOC ---
[facility] Progress Note Progress Note DATE OF SERVICE: 12/09/20 Per PSA report patient was brought in on the pickup order after obtaining it TLS appointment with provider Wendie, reportedly he had made a suicide statement if I was ever feeling suicidal it would only be if I had terminal cancer, this was confirmed with the provider. Also PSA rechecked a therapist Gia at [facility] who reported all nose he wasn't presenting his usual self. Reportedly patient arrived with the [employer] police [employer] who is his friend and they were both laughing and joking together upon arrival. Patient reported being somewhat stressed out about his possibly struggling with some addiction issues, he reported wanting to get her help. On presentation talk screen was only positive for benzodiazepines and he takes Xanax for 17 years as his only mental health medication, no past suicide attempts, no recent or adult inpatient admissions. 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 Was unsure why he was brought in, stated feeling frustrated by the him always being asked the same questions about suicidal ideation, despite him consistently reporting he does not have any suicidal ideation, intent or plan. Collateral was obtained from who states he is his usual self, no safety concerns noted to have back at home. Patient does not meet criteria for involuntary admission at this time, w hich was communicated to PSA, as long as he has an appointment with outside provider for mental health within 5 days, and comprehensive safety plan. Per PSA patient does not have any weapons or guns in the home. Patient feels safe for discharge and refuses voluntary admission. Vital Signs Vital Signs Date Time Temp Pulse Resp B/P (MAP) Pulse Ox O2 Delivery O2 Flow Rate FiO2 12/09/20 10:12 98.1 76 19 137/80 (99) 100 Laboratory Data 24H Labs Laboratory Tests 2 12/09/20 10:23: Nucleated Red Blood Cells % (auto) 0.0, Anion Gap 5L, Glomerular Filtration Rate > 60.0, Calcium Level 9.4, Total Bilirubin 0.3, Direct Bilirubin 0.1, Aspartate Amino Transf (AST/SGOT) 18, Alanine Aminotransferase (ALT/SGPT) 42, Alkaline Phosphatase 75, Total Protein 7.7, Albumin 3.5, Albumin/Globulin Ratio 0.8, Thyroid Stimulating Hormone (TSH) 1.180, Salicylates Level < 1.7L, Urine Opiates Screen NEGATIVE, Urine Methadone Screen NEGATIVE, Acetaminophen Level < 2.0L, Urine Barbiturates Screen NEGATIVE, Urine Phencyclidine Screen NEGATIVE, Urine Amphetamines Screen NEGATIVE, Urine Benzodiazepines Screen POSITIVEH, Urine Cocaine Metabolite Screen NEGATIVE, Urine Cannabinoids Screen NEGATIVE, Ethyl Alcohol Level < 0.003 CBC/BMP Laboratory Tests 12/09/20 10:23 Allergies Coded Allergies: acetaminophen (Verified Allergy, Intermediate, STOMACH PAIN/HIVES, 08/12/20) codeine (Verified Allergy, Intermediate, STOMACH PAIN/HIVES, 08/12/20) Penicillins (Verified Allergy, Unknown, 08/12/20) ketorolac (Verified Adverse Reaction, Intermediate, PALPITATIONS, 08/12/20) LENY CHIRINOS MD Dec 09, 2020 14:31
== END 2020-12-09 14:35 | disposition home or self-care (01) ==
LOC: M ED 10:06
DX: F33.9 Major depressive disorder, recurrent, unspecified (principal); Z79.899 Other long term (current) drug therapy; Z79.82 Long term (current) use of aspirin; Z88.0 Allergy status to penicillin; Z88.5 Allergy status to narcotic agent; Z88.8 Allergy status to other drugs, medicaments and biological substances

== ENCOUNTER 2022-05-19 17:18 | Emergency (ER) | payer MEDICARE, MEDICAID ==
[~2022-05-19] VITALS: Ht 188 cm; Wt 122.9 kg
[~2022-05-19 17:18] MED LIST changes: +ALBU6.7H6 INH; -PROV108A INH
[2022-05-19] MEDS ORDERED: BENZ200C70 PO (18:47)
[2022-05-19] MEDS ORDERED: MUCI120T PO (18:47)
[2022-05-19 19:04] VITALS: BP 120/88
== END 2022-05-19 19:14 | disposition home or self-care (01) ==
LOC: M ED 17:18
DX: R05.9 Cough, unspecified (principal); I48.91 Unspecified atrial fibrillation; I10 Essential (primary) hypertension; E78.5 Hyperlipidemia, unspecified; K21.9 Gastro-esophageal reflux disease without esophagitis; G47.33 Obstructive sleep apnea (adult) (pediatric); Z88.0 Allergy status to penicillin; Z88.5 Allergy status to narcotic agent; Z88.6 Allergy status to analgesic agent; Z88.8 Allergy status to other drugs, medicaments and biological substances; Z79.82 Long term (current) use of aspirin; Z79.51 Long term (current) use of inhaled steroids; Z79.899 Other long term (current) drug therapy

== ENCOUNTER 2022-07-21 20:11 | Emergency (ER) | payer MEDICARE, MEDICAID ==
[~2022-07-21] VITALS: Ht 188 cm; Wt 124.8 kg
[~2022-07-21 20:11] MED LIST changes: +BENZ200C70 PO; +MUCI120T PO
[2022-07-22 01:03] LABS: BASO % 0.3 % (0.0-1.0); EOS # 0.2 10^3/uL (0.0-0.5); EOS % 1.3 % (0.0-3.0); HEMATOCRIT 40.5 % (42.0-52.0); HEMOGLOBIN 13.5 g/dl (13.5-17.5); LYMPH % 43.7 % (24.0-44.0); MEAN CORPUSCULAR HEMOGLOBIN 29.1 pg (27.0-33.0); MEAN CORPUSCULAR HGB CONC 33.3 g/dl (32.0-36.5); MEAN CORPUSCULAR VOLUME 87.3 fl (80.0-96.0); MONO # 0.7 10^3/uL (0.0-0.8); MONO % 6.2 % (2.0-8.0); NEUTROPHILS # 5.5 10^3/uL (1.5-8.5); NEUTROPHILS % 48.2 % (36.0-66.0); PLATELET COUNT, AUTOMATED 269 10^3/uL (150-450); RED BLOOD COUNT 4.64 10^6/uL (4.30-6.10); WHITE BLOOD COUNT 11.5 10^3/uL (4.0-10.0)
[2022-07-22 01:34] LABS: BLOOD UREA NITROGEN 16 MG/DL (9-23); CALCIUM LEVEL 9.1 MG/DL (8.5-10.1); CARBON DIOXIDE LEVEL 27 MMOL/L (20-31); CHLORIDE LEVEL 106 MMOL/L (98-107); CREATININE FOR GFR 0.99 MG/DL (0.70-1.30); GLOMERULAR FILTRATION RATE > 60.0 (>60); GLUCOSE, FASTING 87 MG/DL (60-100); SODIUM LEVEL 138 MMOL/L (136-145)
[2022-07-22] MEDS ORDERED: METH-1165 PO (01:50)
[2022-07-22 02:02] VITALS: BP 124/58
== END 2022-07-22 02:07 | disposition home or self-care (01) ==
LOC: M ED 20:11
DX: S09.90XA Unspecified injury of head, initial encounter (principal); S13.4XXA Sprain of ligaments of cervical spine, initial encounter; X50.0XXA Overexertion from strenuous movement or load, initial encounter; Y92.89 Other specified places as the place of occurrence of the external cause; Y93.89 Activity, other specified; Y99.8 Other external cause status; M54.50 Low back pain, unspecified; R20.2 Paresthesia of skin; I10 Essential (primary) hypertension; I48.91 Unspecified atrial fibrillation; K21.9 Gastro-esophageal reflux disease without esophagitis; Z88.0 Allergy status to penicillin; Z88.5 Allergy status to narcotic agent; Z88.8 Allergy status to other drugs, medicaments and biological substances; Z88.6 Allergy status to analgesic agent; Z79.82 Long term (current) use of aspirin; Z79.899 Other long term (current) drug therapy

== ENCOUNTER → 2022-08-20 | Outpatient (CLI) | payer OTHER, MEDICAID ==
[~2022-08-20] MED LIST changes: +METH-1165 PO
[2022-08-20 17:30] LABS: HEPATITIS B SURFACE ANTIGEN NEGATIVE (NEGATIVE)
[2022-08-20 17:43] LABS: HIV 1&2 SCREEN NEGATIVE (NEGATIVE)
[2022-08-20 17:52] LABS: HEPATITIS B CORE ANTIBODY IGM NEGATIVE (NEGATIVE); HEPATITIS C VIRUS ABY INDEX 0.12 INDEX (<0.8)
[2022-08-20 19:01] LABS: GC DNA AMPLIFICATION NEGATIVE (NEGATIVE)
== END ==
LOC: M WUC 14:33
PROVIDERS: ATTEND Physician Assistant
DX: R30.0 Dysuria (principal)

== ENCOUNTER → 2022-08-24 | Outpatient (CLI) | payer OTHER, MEDICAID ==
[2022-08-24 13:27] LABS: IRON (FE) 67 UG/DL (65-175); PERCENT SATURATION 21.1 % (19.7-50.0); TOTAL IRON BINDING CAPACITY 318 UG/DL (250-425)
[2022-08-24 13:28] LABS: ALBUMIN 3.8 G/DL (3.2-5.2); ALKALINE PHOSPHATASE 67 U/L (46-116); ALT/SGPT 21 U/L (7.0-40); AST/SGOT 8 U/L (<34); BILIRUBIN,TOTAL 0.3 MG/DL (0.3-1.2); BLOOD UREA NITROGEN 12 MG/DL (9-23); CALCIUM LEVEL 8.9 MG/DL (8.5-10.1); CARBON DIOXIDE LEVEL 24 MMOL/L (20-31); CHLORIDE LEVEL 107 MMOL/L (98-107); CHOLESTEROL LEVEL 145 MG/DL (<200); CHOLESTEROL RISK RATIO 4.69 (<5); CREATININE FOR GFR 0.94 MG/DL (0.70-1.30); GLOMERULAR FILTRATION RATE > 60.0 (>60); GLUCOSE, FASTING 96 MG/DL (60-100); HDL CHOLESTEROL 30.9 MG/DL (>40); LDL CHOLESTEROL 93.3 MG/DL (<100); NON-HDL-C 114.1 MG/DL; POTASSIUM SERUM 4.2 MMOL/L (3.5-5.1); SODIUM LEVEL 139 MMOL/L (136-145); TRIGLYCERIDES LEVEL 104 MG/DL (<150)
[2022-08-24 13:29] LABS: HEMATOCRIT 43.1 % (42.0-52.0); HEMOGLOBIN 13.9 g/dl (13.5-17.5); MEAN CORPUSCULAR HEMOGLOBIN 28.8 pg (27.0-33.0); MEAN CORPUSCULAR HGB CONC 32.3 g/dl (32.0-36.5); MEAN CORPUSCULAR VOLUME 89.4 fl (80.0-96.0); PLATELET COUNT, AUTOMATED 282 10^3/uL (150-450); RED BLOOD COUNT 4.82 10^6/uL (4.30-6.10); WHITE BLOOD COUNT 9.4 10^3/uL (4.0-10.0)
[2022-08-24 13:31] LABS: TESTOSTERONE 217 NG/DL (241-827); THYROID STIMULATING HORMONE 0.861 uIU/ML (0.55-4.78)
[2022-08-24 13:33] LABS: TOTAL 25(OH) VITAMIN D 22.9 NG/ML (20.0-100.0); VITAMIN B12 LEVEL 317 PG/ML (211-911)
[2022-08-24 13:40] LABS: HEMOGLOBIN A1c 5.5 % (4.0-6.0)
== END ==
LOC: M WUC 09:46
PROVIDERS: ATTEND Family Medicine
DX: I10 Essential (primary) hypertension (principal); R53.83 Other fatigue; E03.9 Hypothyroidism, unspecified

== ENCOUNTER 2022-10-24 18:44 | Emergency (ER) | payer MEDICAID, MEDICARE, OTHER ==
[~2022-10-24] VITALS: Ht 188 cm; Wt 122.0 kg
[2022-10-24 20:04] LABS: BASO % 0.2 % (0.0-1.0); EOS # 0.1 10^3/uL (0.0-0.5); EOS % 1.2 % (0.0-3.0); HEMATOCRIT 39.8 % (42.0-52.0); HEMOGLOBIN 13.2 g/dl (13.5-17.5); LYMPH # 4.1 10^3/uL (1.5-5.0); LYMPH % 35.4 % (24.0-44.0); MEAN CORPUSCULAR HEMOGLOBIN 29.5 pg (27.0-33.0); MEAN CORPUSCULAR HGB CONC 33.2 g/dl (32.0-36.5); MONO # 0.8 10^3/uL (0.0-0.8); NEUTROPHILS # 6.5 10^3/uL (1.5-8.5); PLATELET COUNT, AUTOMATED 272 10^3/uL (150-450); RED BLOOD COUNT 4.47 10^6/uL (4.30-6.10); WHITE BLOOD COUNT 11.5 10^3/uL (4.0-10.0)
[2022-10-24 20:27] LABS: BLOOD UREA NITROGEN 13 MG/DL (9-23); CALCIUM LEVEL 8.5 MG/DL (8.5-10.1); CARBON DIOXIDE LEVEL 27 MMOL/L (20-31); CHLORIDE LEVEL 108 MMOL/L (98-107); CK-MB VALUE MASS < 1.0 NG/ML (<3.6); CPK CREATINE PHOSPHOKINASE 165 U/L (46-171); CREATININE FOR GFR 1.11 MG/DL (0.70-1.30); GLOMERULAR FILTRATION RATE > 60.0 (>60); GLUCOSE, FASTING 92 MG/DL (60-100); POTASSIUM SERUM 3.6 MMOL/L (3.5-5.1); SODIUM LEVEL 143 MMOL/L (136-145)
[2022-10-24 20:31] LABS: THYROID STIMULATING HORMONE 0.877 uIU/ML (0.55-4.78)
[2022-10-24] MEDS ORDERED: PROP20TA72 PO (21:35)
[2022-10-24 23:30] VITALS: BP 141/81; TEMP 98.5; O2SAT 99
== END 2022-10-24 23:42 | disposition home or self-care (01) ==
LOC: M ED 18:44
DX: R55 Syncope and collapse (principal); F41.9 Anxiety disorder, unspecified; R00.1 Bradycardia, unspecified; Z88.0 Allergy status to penicillin; Z88.5 Allergy status to narcotic agent; Z88.8 Allergy status to other drugs, medicaments and biological substances; Z79.82 Long term (current) use of aspirin; Z79.899 Other long term (current) drug therapy

== ENCOUNTER → 2022-12-31 | Outpatient (REF) | payer MEDICARE ==
[~2022-12-31] MED LIST changes: +MECL-209 PO; -MECL1TAB31 PO; +PROP20TA72 PO
== END ==
LOC: M LAB REF 21:08
PROVIDERS: ATTEND Physician Assistant
DX: B34.9 Viral infection, unspecified (principal)

== ENCOUNTER 2023-01-04 01:52 | Emergency (ER) | payer MEDICARE, MEDICAID ==
[~2023-01-04] VITALS: Ht 188 cm; Wt 118.3 kg
[2023-01-04] MEDS ORDERED: ISOVUE-370 76% 100ML VIAL As Ordered ONE (06:31)
[2023-01-04 06:35] LABS: BASO % 0.4 % (0.0-1.0); EOS # 0.5 10^3/uL (0.0-0.5); EOS % 5.4 % (0.0-3.0); HEMATOCRIT 42.6 % (42.0-52.0); HEMOGLOBIN 14.3 g/dl (13.5-17.5); LYMPH # 3.1 10^3/uL (1.5-5.0); LYMPH % 36.3 % (24.0-44.0); MEAN CORPUSCULAR HEMOGLOBIN 29.5 pg (27.0-33.0); MEAN CORPUSCULAR HGB CONC 33.6 g/dl (32.0-36.5); MONO % 12.2 % (2.0-8.0); NEUTROPHILS # 3.9 10^3/uL (1.5-8.5); NEUTROPHILS % 45.5 % (36.0-66.0); PLATELET COUNT, AUTOMATED 248 10^3/uL (150-450); RED BLOOD COUNT 4.84 10^6/uL (4.30-6.10); WHITE BLOOD COUNT 8.5 10^3/uL (4.0-10.0)
[2023-01-04 06:58] LABS: CK-MB VALUE MASS < 1.0 NG/ML (<3.6); MAGNESIUM LEVEL 2.1 MG/DL (1.8-2.4)
[2023-01-04 07:02] LABS: CPK CREATINE PHOSPHOKINASE 82 U/L (46-171); MB/CK RELATIVE INDEX 1.21 (< OR =4)
[2023-01-04 07:16] VITALS: BP 163/65; TEMP 97.4; O2SAT 96
== END 2023-01-04 08:31 | disposition home or self-care (01) ==
LOC: M ED 01:52
DX: J18.9 Pneumonia, unspecified organism (principal); I10 Essential (primary) hypertension; I48.91 Unspecified atrial fibrillation; E78.5 Hyperlipidemia, unspecified; K21.9 Gastro-esophageal reflux disease without esophagitis; F41.9 Anxiety disorder, unspecified; Z88.0 Allergy status to penicillin; Z88.8 Allergy status to other drugs, medicaments and biological substances; Z88.5 Allergy status to narcotic agent; Z79.82 Long term (current) use of aspirin; Z79.899 Other long term (current) drug therapy
CPT/HCPCS: 36415; 71046; 71275; 80047; 82550; 82553; 83735; 83880; 84484; 85025; 87486; 87581; 87633; 87798; 93005; 99284; Q9967

== ENCOUNTER 2023-02-23 01:07 | Emergency (ER) | payer MEDICARE, MEDICAID ==
[~2023-02-23] VITALS: Ht 188 cm; Wt 113.6 kg
[2023-02-23 02:01] LABS: HEMATOCRIT 42.9 % (42.0-52.0); HEMOGLOBIN 14.4 g/dl (13.5-17.5); MEAN CORPUSCULAR HEMOGLOBIN 29.2 pg (27.0-33.0); MEAN CORPUSCULAR HGB CONC 33.6 g/dl (32.0-36.5); PLATELET COUNT, AUTOMATED 275 10^3/uL (150-450); RED BLOOD COUNT 4.93 10^6/uL (4.30-6.10); WHITE BLOOD COUNT 10.1 10^3/uL (4.0-10.0)
[2023-02-23 02:30] LABS: ETHYL ALCOHOL (ETHANOL) 0.006 % (0.000-0.010)
[2023-02-23 02:32] LABS: ALBUMIN 3.8 G/DL (3.2-5.2); ALKALINE PHOSPHATASE 59 U/L (46-116); ALT/SGPT 17 U/L (7.0-40); AST/SGOT 11 U/L (<34); BILIRUBIN,DIRECT 0.2 MG/DL (<0.4); BILIRUBIN,TOTAL 0.5 MG/DL (0.3-1.2); BLOOD UREA NITROGEN 16 MG/DL (9-23); CALCIUM LEVEL 9.3 MG/DL (8.5-10.1); CARBON DIOXIDE LEVEL 27 MMOL/L (20-31); CHLORIDE LEVEL 106 MMOL/L (98-107); CREATININE FOR GFR 0.95 MG/DL (0.70-1.30); GLOMERULAR FILTRATION RATE > 60.0 (>60); GLUCOSE, FASTING 119 MG/DL (60-100); POTASSIUM SERUM 3.8 MMOL/L (3.5-5.1); SALICYLATE LEVEL < 3.0 MG/DL (<30); SODIUM LEVEL 139 MMOL/L (136-145); TOTAL PROTEIN 7.3 G/DL (5.7-8.2)
[2023-02-23 02:34] LABS: THYROID STIMULATING HORMONE 1.446 uIU/ML (0.55-4.78)
[2023-02-23 05:11] LABS: AMPHETAMINES LEVEL URINE NEGATIVE (NEGATIVE); BARBITURATES URINE NEGATIVE (NEGATIVE); COCAINE METABOLITE URINE NEGATIVE (NEGATIVE); METHADONE URINE NEGATIVE (NEGATIVE)
[2023-02-23 05:12] LABS: CANNABINOIDS URINE NEGATIVE (NEGATIVE); OPIATES URINE NEGATIVE (NEGATIVE); PHENCYCLIDINE URINE NEGATIVE (NEGATIVE)
[2023-02-23 05:13] LABS: BENZODIAZEPINES URINE POSITIVE (NEGATIVE)
[2023-02-23 06:05] VITALS: BP 149/83; TEMP 96.7; O2SAT 99
== END 2023-02-23 06:30 | disposition home or self-care (01) ==
LOC: M ED 01:07
DX: F32.A Depression, unspecified (principal); I10 Essential (primary) hypertension; I48.91 Unspecified atrial fibrillation; K21.9 Gastro-esophageal reflux disease without esophagitis; F41.9 Anxiety disorder, unspecified; Z88.0 Allergy status to penicillin; Z88.8 Allergy status to other drugs, medicaments and biological substances; Z88.5 Allergy status to narcotic agent; Z79.899 Other long term (current) drug therapy; Z79.82 Long term (current) use of aspirin

== ENCOUNTER 2023-03-12 05:59 | Emergency (ER) | payer MEDICARE, MEDICAID ==
[~2023-03-12] VITALS: Ht 188 cm; Wt 120.6 kg
[2023-03-12 06:00] VITALS: BP 135/83; TEMP 98; O2SAT 95
== END 2023-03-12 08:33 | disposition left against medical advice (07) ==
LOC: M ED 05:59
DX: Z53.21 Procedure and treatment not carried out due to patient leaving prior to being seen by health care provider (principal)

== ENCOUNTER → 2023-07-04 | Outpatient (CLI) | payer MEDICARE, MEDICAID ==
[2023-07-04 17:55] LABS: HEMOGLOBIN 14.3 g/dl (13.5-17.5); MEAN CORPUSCULAR HEMOGLOBIN 29.5 pg (27.0-33.0); MEAN CORPUSCULAR HGB CONC 33.3 g/dl (32.0-36.5); MEAN CORPUSCULAR VOLUME 88.7 fl (80.0-96.0); PLATELET COUNT, AUTOMATED 266 10^3/uL (150-450); RED BLOOD COUNT 4.85 10^6/uL (4.30-6.10); WHITE BLOOD COUNT 8.5 10^3/uL (4.0-10.0)
[2023-07-04 18:08] LABS: ERYTHROCYTE SEDIMENTATION RATE 35 mm/hr (0-15)
[2023-07-04 18:27] LABS: HEMOGLOBIN A1c 5.5 % (4.0-6.0)
[2023-07-04 19:05] LABS: C REACTIVE PROTEIN QUANTITATIV < 0.40 MG/DL (<1.0)
[2023-07-04 19:06] LABS: RHEUMATOID FACTOR QUANT 5.4 IU/ML (<14)
[2023-07-04 19:07] LABS: ALBUMIN 3.8 G/DL (3.2-5.2); ALKALINE PHOSPHATASE 67 U/L (46-116); ALT/SGPT 21 U/L (7.0-40); AST/SGOT 13 U/L (<34); BILIRUBIN,TOTAL 0.3 MG/DL (0.3-1.2); BLOOD UREA NITROGEN 15 MG/DL (9-23); CALCIUM LEVEL 9.5 MG/DL (8.5-10.1); CARBON DIOXIDE LEVEL 26 MMOL/L (20-31); CHLORIDE LEVEL 104 MMOL/L (98-107); CHOLESTEROL LEVEL 162 MG/DL (<200); CHOLESTEROL RISK RATIO 4.92 (<5); CREATININE FOR GFR 0.98 MG/DL (0.70-1.30); GLOMERULAR FILTRATION RATE > 60.0 (>60); GLUCOSE, FASTING 89 MG/DL (60-100); HDL CHOLESTEROL 32.9 MG/DL (>40); LDL CHOLESTEROL 92.9 MG/DL (<100); NON-HDL-C 129.1 MG/DL; POTASSIUM SERUM 4.2 MMOL/L (3.5-5.1); SODIUM LEVEL 138 MMOL/L (136-145); TOTAL PROTEIN 7.3 G/DL (5.7-8.2); TRIGLYCERIDES LEVEL 181 MG/DL (<150)
[2023-07-04 19:08] LABS: FREE T4 1.11 NG/DL (0.89-1.76); THYROID STIMULATING HORMONE 1.619 uIU/ML (0.55-4.78)
[2023-07-07 13:18] LABS: ANA (HEP2) Positive (.); CYCLIC CITRULLINATED PEPTIDE 7 units (0-19); SSA SJOGRENS A <0.2 AI (0.0-0.9); SSB SJOGRENS B 0.2 AI (0.0-0.9); VITAMIN D 1,25 DIHYDROXY 44.8 pg/mL (24.8-81.5)
== END ==
LOC: M WUC 11:17
PROVIDERS: ATTEND Physician Assistant
DX: I48.0 Paroxysmal atrial fibrillation (principal); F41.1 Generalized anxiety disorder; M54.2 Cervicalgia; Z79.82 Long term (current) use of aspirin; Z79.899 Other long term (current) drug therapy

== ENCOUNTER 2024-03-16 11:53 | Emergency (ER) | payer MEDICARE, MEDICAID ==
[~2024-03-16] VITALS: Ht 188 cm; Wt 125.8 kg
[2024-03-16 12:10] VITALS: BP 152/102; TEMP 97.8; O2SAT 96
== END 2024-03-16 12:28 | disposition left against medical advice (07) ==
LOC: EDBD 11:53 → M ED 11:53
DX: Z53.21 Procedure and treatment not carried out due to patient leaving prior to being seen by health care provider (principal)

== ENCOUNTER → 2024-06-13 | Outpatient (REF) | payer MEDICARE, MEDICAID | LOC: M SMT 15:18 | PROVIDERS: ATTEND Urology | DX: Z30.2 Encounter for sterilization (principal) ==

== ENCOUNTER 2024-12-05 01:35 | Emergency (ER) | payer MEDICARE, MEDICAID ==
[~2024-12-05] VITALS: Ht 188 cm; Wt 123.9 kg
[2024-12-05] MEDS ORDERED: DIAZ-654 (01:59)
[2024-12-05] MEDS ORDERED: XANA2TAB2 (01:59)
[2024-12-05 02:28] LABS: BASO # 0.0 10^3/uL (0.0-0.2); BASO % 0.4 % (0.0-1.0); EOS # 0.5 10^3/uL (0.0-0.5); EOS % 5.4 % (0.0-3.0); LYMPH # 4.1 10^3/uL (1.5-5.0); LYMPH % 40.5 % (24.0-44.0); MONO # 0.8 10^3/uL (0.0-0.8); MONO % 8.4 % (2.0-8.0); NEUTROPHILS # 4.5 10^3/uL (1.5-8.5); NEUTROPHILS % 44.9 % (36.0-66.0); PLATELET COUNT, AUTOMATED 255 10^3/uL (150-450)
[2024-12-05 02:53] LABS: ALT/SGPT 19 U/L (7.0-40); AST/SGOT 16 U/L (<34); CALCIUM LEVEL 8.8 MG/DL (8.5-10.1); CARBON DIOXIDE LEVEL 25 MMOL/L (20-31); CHLORIDE LEVEL 104 MMOL/L (98-107); CK-MB VALUE MASS < 1.0 NG/ML (<3.6); CREATININE FOR GFR 0.96 MG/DL (0.70-1.30); GLOMERULAR FILTRATION RATE > 90.0 (>60); POTASSIUM SERUM 4.0 MMOL/L (3.5-5.1); SODIUM LEVEL 140 MMOL/L (136-145)
[2024-12-05 02:56] LABS: CPK CREATINE PHOSPHOKINASE 179 U/L (46-171)
[2024-12-05] MEDS ORDERED: PROPRANOLOL 20 MG TAB PO ONE (04:10)
[2024-12-05 04:25] VITALS: BP 133/76
[2024-12-05] MEDS: PROPRANOLOL 10 MG TAB PO ONE (04:25)
[2024-12-05] MEDS: ALPRAZolam 0.5 MG TAB PO ONE (04:26)
[2024-12-05 05:30] VITALS: TEMP 96.8
[2024-12-05] MEDS ORDERED: PRED20TA PO (05:45)
[2024-12-05 06:15] VITALS: BP 116/75; O2SAT 95
[2024-12-05] MEDS: predniSONE 20 MG TAB PO ONE (06:17)
== END 2024-12-05 06:19 | disposition home or self-care (01) ==
LOC: M ED 01:35
DX: J20.9 Acute bronchitis, unspecified (principal); B34.1 Enterovirus infection, unspecified; I48.91 Unspecified atrial fibrillation; I25.2 Old myocardial infarction; K21.9 Gastro-esophageal reflux disease without esophagitis; G47.33 Obstructive sleep apnea (adult) (pediatric); F41.9 Anxiety disorder, unspecified; Z88.1 Allergy status to other antibiotic agents; Z88.5 Allergy status to narcotic agent; Z88.6 Allergy status to analgesic agent; Z79.899 Other long term (current) drug therapy; Z79.52 Long term (current) use of systemic steroids
CPT/HCPCS: 36415; 71046; 80048; 80076; 82550; 82553; 84484; 85025; 87486; 87581; 87633; 87798; 93005; 99284; J7512

== ENCOUNTER 2025-02-10 12:01 | Emergency (ER) | payer MEDICARE, MEDICAID ==
[~2025-02-10] VITALS: Ht 188 cm; Wt 125.2 kg
[~2025-02-10 12:01] MED LIST changes: +DIAZ-654; +XANA2TAB2
[2025-02-10] MEDS: MORPHINE 4 MG/ML 1 ML VIAL IV ONE (13:17)
[2025-02-10 14:38] VITALS: BP 121/65; TEMP 97; O2SAT 98
== END 2025-02-10 15:14 | disposition home or self-care (01) ==
LOC: M ED 12:01 → EDBD 12:01 → M ED 15:14
DX: S83.92XA Sprain of unspecified site of left knee, initial encounter (principal); S93.402A Sprain of unspecified ligament of left ankle, initial encounter; S16.1XXA Strain of muscle, fascia and tendon at neck level, initial encounter; Y92.9 Unspecified place or not applicable; Y93.9 Activity, unspecified; Y99.0 Civilian activity done for income or pay; W00.9XXA Unspecified fall due to ice and snow, initial encounter; I48.91 Unspecified atrial fibrillation; I10 Essential (primary) hypertension; E78.5 Hyperlipidemia, unspecified; I25.2 Old myocardial infarction; K21.9 Gastro-esophageal reflux disease without esophagitis; J45.909 Unspecified asthma, uncomplicated; F41.9 Anxiety disorder, unspecified; F32.A Depression, unspecified; Z88.1 Allergy status to other antibiotic agents; Z88.5 Allergy status to narcotic agent; Z88.6 Allergy status to analgesic agent; Z79.899 Other long term (current) drug therapy